=== PATIENT | male | born 1965 | race Caucasian/White ===

== ENCOUNTER 2016-02-18 09:34 | Day surgery (SDC) | payer MEDICAID ==
[2016-02-17 08:14] VITALS: BMI 27.8
[~2016-02-18 09:34] MED LIST: LACTATED RINGERS 1,000 ML IV SCH; LIDOCAINE 1% 20 ML VIAL (10MG/ML) FOR IV START INTRADERMA PRN
[2016-02-18 10:10] VITALS: RESP 16; TEMP 97
[2016-02-18] MEDS ORDERED: LIDOCAINE 1% INJ 10MG/ML (20 ML MDV) ONE (10:14)
[2016-02-18] MEDS ORDERED: PROPOFOL 10 MG/ML 20 ML VIAL IV ONE (10:14)
--- NOTE | 2016-02-18 10:32 | P.PCN ---
Date of Procedure: 02/18/16 Procedure(s) Performed: BRIEF HISTORY: Patient is a 51-year-old pleasant white male, scheduled for an elective colonoscopy as a part of screening for colon neoplasia. PROCEDURE PERFORMED: Colonoscopy with snare polypectomy. PREOPERATIVE DIAGNOSIS: Screening for colon cancer. IV sedation per Anesthesia. PROCEDURE: After informed consent was obtained, the patient, was brought into the endoscopy unit. IV conscious sedation was administered by Anesthesia under continuous monitoring. Digital rectal examination was normal. Initially the Olympus CF-160 flexible video colonoscope was then inserted in the rectum, gradually advanced into the cecum without any difficulty. Careful examination was performed as the scope was gradually being withdrawn. Ileocecal valve and the appendiceal orifice were visualized and appeared normal. Prep was excellent. Mucosa of the cecum, appeared normal. In the ascending colon there was a 7-8 mm polyp that was removed by snare polypectomy. The rest of the ascending colon, transverse colon, descending colon, sigmoid colon, and rectum appeared normal. Retroflexion was performed in the rectum and no lesions were seen. The patient tolerated the procedure well. IMPRESSION: 7-8 mm ascending colon polyp status post polypectomy. Rest of the colon appeared normal. RECOMMENDATIONS: Findings of this examination were discussed with the patient as well as his family. he was advised to follow with the biopsy results. If the biopsy shows a tubular adenoma, he can have a repeat colonoscopy in 5 years.
[2016-02-18 11:05] VITALS: BP 140/90; PULSE 76
== END 2016-02-18 11:26 | disposition home or self-care (01) ==
LOC: ORWHC2ENDO 09:34
PROVIDERS: ATTEND Internal Medicine Gastroenterology
DX: Z12.11 Encounter for screening for malignant neoplasm of colon (principal); K63.5 Polyp of colon; I10 Essential (primary) hypertension; F17.200 Nicotine dependence, unspecified, uncomplicated; K21.9 Gastro-esophageal reflux disease without esophagitis; Z79.899 Other long term (current) drug therapy; Z88.3 Allergy status to other anti-infective agents
CPT/HCPCS: 88305; 45385; J2001; J2704; 99153

== ENCOUNTER → 2016-12-06 | Outpatient (CLI) | payer MEDICAID ==
[2016-12-06 20:10] LABS: Clam IgE <0.10 kU/L; Egg White IgE <0.10 kU/L; Peanut IgE <0.10 kU/L; Scallop IgE <0.10 kU/L; Soybean IgE <0.10 kU/L
== END | disposition home or self-care (01) ==
LOC: LABWHC1 14:06
PROVIDERS: ATTEND Internal Medicine Critical Care Medicine
DX: L50.9 Urticaria, unspecified (principal)
CPT/HCPCS: 36415; 82785; 86003

== ENCOUNTER → 2017-03-02 | Outpatient (CLI) | payer MEDICAID ==
--- NOTE | 2017-03-04 13:21 | MR ---
EXAMINATION TYPE: MR lumbar spine wo con DATE OF EXAM: 03/03/2017 COMPARISON: NONE HISTORY: Low back pain CONTRAST: 0 mL intravenous Gadavist. TECHNIQUE: Multiplanar, multisequence images of the lumbar spine were acquired. FINDINGS: L5-S1: Broad-based disc bulge is present. Some left paracentral focal bulge may be present with mild anterior thecal sac compression. No stenosis is present. Moderate bilateral foraminal narrowing is pr esent from disc bulging extending into the inferior foramen. . L4-L5: There appears to be an annular tear present centrally. There is mild broad-based central disc bulge with anterior thecal sac compression. Diffuse disc bulge is present. No spinal canal stenosis i s present. Neural foramen are patent. L3-L4: Broad-based disc bulge has anterior thecal sac contact. Mild facet hypertrophy is present. No spinal canal stenosis or neural foraminal stenosis is present. L2-L3: No significant disc bulge or disc herniation. No spinal canal stenosis. No foraminal stenosi s. . L1-L2: No significant disc bulge or disc herniation. No spinal canal stenosis. No foraminal stenosi s. . T12-L1: No significant disc bulge or disc herniation. No spinal canal stenosis. No foraminal stenos is. . IMPRESSION: 1. Annular tear L4-5 with mild anterior thecal sac compression. 2. L5-S1 Disc bulge with mild anterior thecal sac compression. Some foraminal narrowing at L5-S1 due to inferior foraminal disc bulge is present.
== END | disposition home or self-care (01) ==
LOC: RADMRIMAIN 11:44
PROVIDERS: ATTEND Psychiatry & Neurology Neurology
DX: M99.73 Connective tissue and disc stenosis of intervertebral foramina of lumbar region (principal); M51.27 Other intervertebral disc displacement, lumbosacral region; M51.36 Other intervertebral disc degeneration, lumbar region; G95.29 Other cord compression
CPT/HCPCS: 72148

== ENCOUNTER 2017-08-01 09:27 | Observation (INO) | payer MEDICAID ==
[2017-08-01] MEDS ORDERED: SODIUM CHLORIDE 0.9% 1,000 ML IV STA ×2 (09:48)
[2017-08-01] MEDS ORDERED: ALBUTEROL NEBULIZED 2.5 MG/3 ML INHALATION STA (09:49)
[2017-08-01] MEDS ORDERED: methylPREDNISolone SOD SUCCI 125 MG/2 ML VIAL IV STA (09:50)
[2017-08-01] MEDS ORDERED: diphenhydrAMINE 50 MG/ML 1 ML VIAL IVP STA (09:50)
[2017-08-01] MEDS ORDERED: EPINEPHrine 1 MG/ML 1 ML AMP IM STA (09:50)
[2017-08-01] MEDS ORDERED: FAMOTIDINE 20 MG/2 ML VIAL IV STA (09:50)
[2017-08-01 10:17] LABS: Basophils # (A) 0.1 k/uL (0-0.2); Basophils % (A) 1 %; Eosinophils # (A) 0.5 k/uL (0-0.7); Eosinophils % (A) 5 %; HCT 44.9 % (39.0-53.0); HGB 15.2 gm/dL (13.0-17.5); Lymphocytes # (A) 2.5 k/uL (1.0-4.8); Lymphocytes % (A) 25 %; MCH 30.4 pg (25.0-35.0); MCHC 33.9 g/dL (31.0-37.0); MCV 89.9 fL (80.0-100.0); Mean Platelet Volume 6.4; Monocytes # (A) 0.8 k/uL (0-1.0); Monocytes % (A) 7 %; Neutrophils # (A) 6.3 k/uL (1.3-7.7); Neutrophils % (A) 61 %; Platelet Count 281 k/uL (150-450); WBC 10.3 k/uL (3.8-10.6)
[2017-08-01 10:26] LABS: ALT 26 U/L (21-72); AST 21 U/L (17-59); Albumin 4.2 g/dL (3.5-5.0); Alkaline Phosphatase 51 U/L (38-126); Anion Gap 12 mmol/L; Blood Urea Nitrogen 16 mg/dL (9-20); Calcium 9.2 mg/dL (8.4-10.2); Carbon Dioxide 26 mmol/L (22-30); Chloride 101 mmol/L (98-107); Glucose 115 mg/dL (74-99); Potassium 4.2 mmol/L (3.5-5.1); Sodium 139 mmol/L (137-145); Total Bilirubin 0.8 mg/dL (0.2-1.3); Total Protein 6.8 g/dL (6.3-8.2)
--- NOTE | 2017-08-01 10:54 | ED ---
Allergic Reaction HPI <Juanito Coats - Last Filed: 08/01/17 12:08> - General Source: patient, RN notes reviewed, old records reviewed Mode of arrival: ambulatory Limitations: no limitations <Kira Meyers - Last Filed: 08/01/17 12:19> - General Chief complaint: Allergic Reaction Stated complaint: allergic reaction Time Seen by Provider: 08/01/17 09:41 - History of Present Illness Initial Comments: This patient's a 52-year-old male presents emergency department today chief complaint of angioedema. He reports that he woke up this morning and started have some swelling over his lips and tongue. He states he's been having this intermittently for the past few years but family providers and testing cannot determine his exact ALLERGIES. He is not on any Doc or arm inhibitors for blood pressure. He's had no new foods or any exposures that he can think of that related to the onset of this angioedema. Patient states he does feel some closing of his throat. Denies any other symptoms. He did take a few Benadryl prior to arrival. (Kira Meyers) - Related Data Home Medications Medication Instructions Recorded Confirmed Hydrochlorothiazide 25 mg PO DAILY 11/12/14 08/01/17 [Hydrochlorothiazide] Omeprazole [Omeprazole] 20 mg PO DAILY 11/12/14 08/01/17 Famotidine [Pepcid] 20 mg PO DAILY 02/17/16 08/01/17 Previous Rx's Medication Instructions Recorded Cetirizine HCl [Zyrtec] 10 mg PO DAILY #60 tab 11/12/14 Allergies Allergy/AdvReac Type Severity Reaction Status Date / Time chlorhexidine gluconate Allergy Unknown Verified 08/01/17 10:06 [From Peridex] Review of Systems ROS Other: All systems not noted in ROS Statement are negative. <Juanito Coats - Last Filed: 08/01/17 12:08> ROS Other: All systems not noted in ROS Statement are negative. <Kira Meyers - Last Filed: 08/01/17 12:19> ROS Statement: Those systems with pertinent positive or pertinent negative responses have been documented in the HPI. Past Medical History Past Medical History: GERD/Reflux, Hypertension Additional Past Medical History / Comment(s): varicose veins, History of Any Multi-Drug Resistant Organisms: None Reported Past Surgical History: Orthopedic Surgery Additional Past Surgical History / Comment(s): abdifatah knee arthroscopy(rt x 2), rt knee replacement, Left shoulder Past Anesthesia/Blood Transfusion Reactions: No Reported Reaction Past Psychological History: No Psychological Hx Reported Smoking Status: Current every day smoker - Past Family History Mother Family Medical History: Cancer <Kira Meyers - Last Filed: 08/01/17 12:19> General Exam <Juanito Coats - Last Filed: 08/01/17 12:08> Limitations: no limitations <MiraKira - Last Filed: 08/01/17 12:19> - General Exam Comments Initial Comments: 52-year-old male. Alert and oriented. No acute distress. General: Well appearing, well nourished, in no distress. Oriented x 3, normal mood and affect . Ambulating without difficulty. Skin: Good turgor, no rash, unusual bruising or prominent lesions Hair: Normal texture and distribution. HEENT: Head: Normocephalic, atraumatic, no visible or palpable masses, depressions, or scaring. Eyes: Visual acuity intact, conjunctiva clear, sclera non-icteric, EOM intact, PERRL. Ears: EACs clear, TMs translucent & cone of light visualized. hearing intact. Nose: No external lesions, mucosa non-inflamed, septum and turbinates normal Mouth: It is of angioedema of the lips. Tongue is somewhat swollen. Teeth/Gums: No obvious caries or periodontal disease. No gingival inflammation or significant resorption. Pharynx: Mucosa non-inflamed, no tonsillar hypertrophy or exudate Neck: Supple, without lesions, bruits, or adenopathy, thyroid non-enlarged and non-tender Heart: No cardiomegaly or thrills; regular rate and rhythm, no murmur or gallop Lungs: Clear to auscultation and percussion Abdomen: Bowel sounds normal, no tenderness, organomegaly, masses, or hernia Back: Spine normal without deformity or tenderness, no CVA tenderness Extremities: No amputations or deformities, cyanosis, edema or varicosities, peripheral pulses intact Musculoskeletal: Normal gait and station. No misalignment, asymmetry, crepitation, defects, tenderness, masses, effusions, decreased range of motion, instability, atrophy or abnormal strength or tone in the head, neck, spine, ribs , pelvis or extremities. Neurologic: CN 2-12 normal. Sensation to pain, touch, and proprioception normal. DTRs normal in upper and lower extremities. No pathologic reflexes. (Kira Meyers) Vital Signs 08/01/17 08/01/17 08/01/17 09:33 09:50 10:33 Temperature 97.4 F L Pulse Rate 69 75 Respiratory 16 20 Rate Blood Pressure 142/83 O2 Sat by Pulse 98 Oximetry 08/01/17 08/01/17 10:43 11:24 Temperature Pulse Rate 60 72 Respiratory 18 Rate Blood Pressure 131/81 O2 Sat by Pulse 96 Oximetry Medical Decision Making - Lab Data Result diagrams: 08/01/17 09:47 08/01/17 09:47 <Juanito Coats - Last Filed: 08/01/17 12:08> - Lab Data Result diagrams: 08/01/17 09:47 08/01/17 09:47 <Kira Meyers - Last Filed: 08/01/17 12:19> - Medical Decision Making Patient reevaluated by myself, Dr. Coats. Patient is resting comfortably in bed. Patient does have moderate angioedema of the lips. Patient has mild angioedema of the uvula. No dyspnea. Patient is updated on plan and recommendation for admission and is agreeable for this. Case was discussed with Dr. Cage, who will admit for Dr. Jacobs. (Juanito Coats) 32-year-old male process present with angioedema. IV was established and Solu- Medrol Benadryl Pepcid and 0.3 mg of epinephrine was given. Patient is reevaluated does report some mild diminishing of the swelling of his lips. Given albuterol breathing treatment. Continues to have angioedema of the uvula. Does not complain of any major shortness of breath. Discussed case with Dr. Coats would like to keep the Patient for observation for repeat steroids, Pepcid and Benadryl. Patient agrees to the admission. (Kira Meyers) - Lab Data Lab Results 08/01/17 08/01/17 Range/Units 09:47 09:47 WBC 10.3 (3.8-10.6) k/uL RBC 5.00 (4.30-5.90) m/uL Hgb 15.2 (13.0-17.5) gm/dL Hct 44.9 (39.0-53.0) % MCV 89.9 (80.0-100.0) fL MCH 30.4 (25.0-35.0) pg MCHC 33.9 (31.0-37.0) g/dL RDW 13.0 (11.5-15.5) % Plt Count 281 (150-450) k/uL Neutrophils % 61 % Lymphocytes % 25 % Monocytes % 7 % Eosinophils % 5 % Basophils % 1 % Neutrophils # 6.3 (1.3-7.7) k/uL Lymphocytes # 2.5 (1.0-4.8) k/uL Monocytes # 0.8 (0-1.0) k/uL Eosinophils # 0.5 (0-0.7) k/uL Basophils # 0.1 (0-0.2) k/uL Sodium 139 (137-145) mmol/L Potassium 4.2 (3.5-5.1) mmol/L Chloride 101 (98-107) mmol/L Carbon Dioxide 26 (22-30) mmol/L Anion Gap 12 mmol/L BUN 16 (9-20) mg/dL Creatinine 0.74 (0.66-1.25) mg/dL Est GFR (CKD-EPI)AfAm >90 (>60 ml/min/1.73 sqM) Est GFR (CKD-EPI)NonAf >90 (>60 ml/min/1.73 sqM) Glucose 115 H (74-99) mg/dL Calcium 9.2 (8.4-10.2) mg/dL Total Bilirubin 0.8 (0.2-1.3) mg/dL AST 21 (17-59) U/L ALT 26 (21-72) U/L Alkaline Phosphatase 51 (38-126) U/L Total Protein 6.8 (6.3-8.2) g/dL Albumin 4.2 (3.5-5.0) g/dL Disposition <Juanito Coats - Last Filed: 08/01/17 12:08> Is patient prescribed a controlled substance at d/c from ED?: No When asked, does pt state using other controlled substances?: No If prescribed controlled substance>3 days was MAPS reviewed?: No If opioid is for acute pain is fill amount 7 days or less?: No If Rx opioid, was Start Talking consent form obtained?: No Time of Disposition: 12:19 <Kira Meyers - Last Filed: 08/01/17 12:19> Clinical Impression: Angioedema Disposition: ADMITTED IP TO THIS [facility] Condition: Stable Referrals: Jonnie Jacobs MD [Primary Care Provider] - 1-2 days
[2017-08-01] MEDS ORDERED: NALOXONE 0.4 MG/ML 1 ML VIAL IV PRN (12:19)
[2017-08-01] MEDS ORDERED: LORazepam 2 MG/ML INJ IV PRN (12:19)
[2017-08-01] MEDS ORDERED: ONDANSETRON 4 MG/2 ML VIAL IVP PRN (12:19)
[2017-08-01] MEDS: methylPREDNISolone SOD SUCCI 125 MG/2 ML VIAL IV SCH ×2 (12:49→18:12)
[2017-08-01] MEDS: diphenhydrAMINE 50 MG/ML 1 ML VIAL IVP SCH ×2 (12:49→18:12)
[2017-08-01] MEDS: ACETAMINOPHEN TAB 325 MG TAB PO PRN ×2 (13:28→20:50)
[2017-08-01] MEDS: SODIUM CHLORIDE 0.9% 1,000 ML IV SCH (13:58)
[2017-08-01] MEDS: FAMOTIDINE 20 MG/2 ML VIAL IV SCH (20:50)
[2017-08-02] MEDS: methylPREDNISolone SOD SUCCI 125 MG/2 ML VIAL IV SCH ×3 (00:11→11:26)
[2017-08-02] MEDS: diphenhydrAMINE 50 MG/ML 1 ML VIAL IVP SCH ×3 (00:11→11:26)
[2017-08-02] MEDS: SODIUM CHLORIDE 0.9% 1,000 ML IV SCH ×3 (00:12→11:26)
--- NOTE | 2017-08-02 01:02 | P.HPIM ---
History of Present Illness H&P Date: 08/01/17 Chief Complaint: Lip swelling Patient is a 52-year-old male with a known history of ALLERGIC reactions and was following with ALLERGY/vendor management specialist at [facility] and currently with Dr. Becker came to ER with complaints of swelling and angioedema. He reports that he woke up this morning and started have some swelling over his lips and tongue. He states he's been having this intermittently for the past few years but family providers and testing cannot determine his exact ALLERGIES. He is not on any Doc or arm inhibitors for blood pressure. He's had no new foods or any exposures that he can think of that related to the onset of this angioedema. Patient states he does feel some closing of his throat. Denies any other symptoms. He did take a Benadryl tablet prior to arrival. Denied any recent travel. Denied any specific food intake. Review of Systems Constitutional: Patient denies any fever or chills . No generalized weakness or weight loss. Abdomen: Patient denied nausea vomiting and diarrhea and abdominal pain. Cardiovascular: Patient denies any chest pain or short of breath no palpitations. Respiratory: patient denied any cough is from production. No shortness of breath Neurologic: Patient denied any numbness or tingling headache. Musculoskeletal: Patient denies any complaints of joint swelling or deformity. Skin: Negative. Lip swelling Psychiatric: Negative Endocrine: No heat or cold intolerance. No recent weight gain. Genitourinary: No dysuria or hematuria. All other 14 point ROS negative except the above Past Medical History Past Medical History: GERD/Reflux, Hypertension Additional Past Medical History / Comment(s): varicose veins, PT STATED FOR PAST 3 YEARS HAS HAD SEVERAL OCCURANCES OF AN ALLERGIC REACTION BUT NOT SURE WHAT IS CAUSING IT,STATED HE CARRIES AN EPI PEN. History of Any Multi-Drug Resistant Organisms: None Reported Past Surgical History: Orthopedic Surgery Additional Past Surgical History / Comment(s): abdifatah knee arthroscopy(rt x 2), rt knee replacement, Left shoulder, COLONOSCOPY, 2 LOWER DENTAL IMPLANTS Past Anesthesia/Blood Transfusion Reactions: No Reported Reaction Smoking Status: Former smoker - Past Family History Mother Family Medical History: Cancer Father Family Medical History: CVA/TIA Medications and Allergies Home Medications Medication Instructions Recorded Confirmed Type Cetirizine HCl [Zyrtec] 10 mg PO DAILY #60 tab 11/12/14 08/01/17 Rx Hydrochlorothiazide 25 mg PO DAILY 11/12/14 08/01/17 History [Hydrochlorothiazide] Omeprazole [Omeprazole] 20 mg PO DAILY 11/12/14 08/01/17 History Famotidine [Pepcid] 20 mg PO DAILY 02/17/16 08/01/17 History Allergies Allergy/AdvReac Type Severity Reaction Status Date / Time chlorhexidine gluconate Allergy Unknown Verified 08/01/17 10:06 [From Peridex] Physical Exam Vitals: Vital Signs Temp Pulse Resp BP Pulse Ox 08/01/17 13:30 98.6 F 73 18 140/87 98 08/01/17 11:24 72 18 131/81 96 08/01/17 10:43 60 08/01/17 10:33 75 08/01/17 09:50 20 08/01/17 09:33 97.4 F L 69 16 142/83 98 Intake and Output 08/01/17 08/01/17 08/01/17 06:59 14:59 22:59 Other: Weight 88.451 kg PHYSICAL EXAMINATION: Patient is lying in the bed comfortably, no acute distress, awake alert and oriented.. HEENT: Normocephalic. Lips are swollen. Neck is supple. Pupils reactive. Nostrils clear. Oral cavity is moist. Ears reveal no drainage. Neck reveals no JVD, carotid bruits, or thyromegaly. CHEST EXAMINATION: Trachea is central. Symmetrical expansion. Lung bernard clear to auscultation and percussion. CARDIAC: Normal S1, S2 with no gallops. No murmurs ABDOMEN: Soft. Bowel sounds normal. No organomegaly. No abdominal bruits. Extremities: reveal no edema. No clubbing or cyanosis Neurologically awake, alert, oriented x3 with well-coordinated movements. No focal deficits noted Skin: No rash or skin lesions. Psychiatric: Coperative. Nonsuicidal Musculoskeletal: No joint swelling or deformity. Normal range of motion. Results CBC & Chem 7: 08/01/17 09:47 08/01/17 09:47 Labs: Abnormal Lab Results - Last 24 Hours (Table) 08/01/17 Range/Units 09:47 Glucose 115 H (74-99) mg/dL Assessment and Plan Assessment: Acute Angioedema with lip swelling and shortness of breath on admission History of multiple ALLERGIES GERD Hypertension Osteoarthritis Previous history of smoking Plan: Patient was given IV steroids and Zantac in the ER. Continue the methylprednisolone 60 mg Q6 hourly and follow closely. Monitor for breathing status and further recommendations based on the clinical course. Time with Patient: Greater than 30
[2017-08-02] MEDS ORDERED: PANTOPRAZOLE 40 MG TABLET PO SCH (07:30)
[2017-08-02] MEDS: FAMOTIDINE 20 MG/2 ML VIAL IV SCH (08:03)
[2017-08-02] MEDS ORDERED: HYDROCHLOROTHIAZIDE 25 MG TAB PO SCH (09:00)
[2017-08-02] MEDS ORDERED: LORATADINE 10 MG TAB PO SCH (09:00)
[2017-08-02] MEDS ORDERED: PANTOPRAZOLE 40 MG/10 ML VIAL IV SCH (09:00)
--- NOTE | 2017-08-02 11:47 | P.DS ---
Providers Date of admission: 08/01/17 12:03 Expected date of discharge: 08/02/17 Attending physician: Jonnie Jacobs Primary care physician: Jonnie Jacobs [facility] Course: 52-year-old male is a chronic problems with severe ALLERGIC reactions. 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 This episode patient developed difficulty swallowing and angioedema with significant swelling to face. Patient was treated with steroids And observation overnight and stable for discharge this time Assessment Angioedema unknown source of allergen GERD Hypertension History of osteoarthritis Plan Follow-up with family physician All patient will consults on with tertiary center for ALLERGIES Patient Condition at Discharge: Stable Plan - Discharge Summary Discharge Rx Participant: Yes New Discharge Prescriptions: New Acetaminophen Tab [Tylenol] 650 mg PO Q6HR PRN tab PRN Reason: Mild Pain Or Fever > 100.5 predniSONE 10 mg PO DAILY #30 tab Continue Omeprazole 20 mg PO DAILY Hydrochlorothiazide 25 mg PO DAILY Cetirizine HCl [Zyrtec] 10 mg PO DAILY #60 tab Famotidine [Pepcid] 20 mg PO DAILY Discharge Medication List Cetirizine HCl [Zyrtec] 10 mg PO DAILY #60 tab 11/12/14 [Rx] Hydrochlorothiazide 25 mg PO DAILY 11/12/14 [History] Omeprazole 20 mg PO DAILY 11/12/14 [History] Famotidine [Pepcid] 20 mg PO DAILY 02/17/16 [History] Acetaminophen Tab [Tylenol] 650 mg PO Q6HR PRN tab 08/02/17 [Rx] predniSONE 10 mg PO DAILY #30 tab 08/02/17 [Rx] Follow up Appointment(s)/Referral(s): Jonnie Jacobs MD [Primary Care Provider] - 3 Days Patient Instructions/Handouts: Angioedema (GEN) Activity/Diet/Wound Care/Special Instructions: Cardiac diet. Activity as tolerated.
[2017-08-02 12:17] VITALS: BP 131/81; PULSE 73; RESP 20; TEMP 98.6
[2017-08-03 17:55] LABS: C1 Esterase Inhibitor, Protein 30 mg/dL (21-39)
[2017-08-05 17:15] LABS: C1 Esterase Inhibitor Fnc Assy > 100 % (> 67)
== END 2017-08-02 13:11 | disposition home or self-care (01) ==
LOC: EC 09:27 → 4MS4W 12:03
PROVIDERS: ADMIT Family Medicine; ATTEND Family Medicine
DX: T78.3XXA Angioneurotic edema, initial encounter (principal); R13.10 Dysphagia, unspecified; K21.9 Gastro-esophageal reflux disease without esophagitis; I10 Essential (primary) hypertension; M19.90 Unspecified osteoarthritis, unspecified site; I83.90 Asymptomatic varicose veins of unspecified lower extremity; Z87.891 Personal history of nicotine dependence; R06.02 Shortness of breath; Z79.899 Other long term (current) drug therapy; Z88.8 Allergy status to other drugs, medicaments and biological substances; Z80.9 Family history of malignant neoplasm, unspecified; Z82.3 Family history of stroke
CPT/HCPCS: 99285 ×2; 96374 ×2; 96372 ×2; 96375 ×3; 96361 ×11; 96376 ×2; 36415; 94640; 80053; 86160; 86161; 86332; 85025; G0378 ×2; J0171; J1200 ×2; J2930 ×2

== ENCOUNTER 2017-10-05 04:21 | Emergency (ER) | payer MEDICAID ==
[2017-10-05 04:28] VITALS: TEMP 97.6
--- NOTE | 2017-10-05 04:54 | ED ---
General Adult HPI - General Source: patient, RN notes reviewed, old records reviewed Mode of arrival: ambulatory Limitations: no limitations <Cam Wood - Last Filed: 10/05/17 04:52> <David Miller - Last Filed: 10/05/17 09:05> - General Chief complaint: Allergic Reaction Stated complaint: Allergic Reaction Time Seen by Provider: 10/05/17 04:32 - History of Present Illness Initial comments: 52-year-old male presents with lower lip swelling. Patient has history of angioedema. He has had approximately 10 episodes of lip and tongue swelling in the past 2 years. He is scheduled to follow up with an ALLERGIC specialist at the [facility] in 2 days. He has been off of his Zyrtec for the past week prior to this evaluation. He states that he woke at approximately 3:30 with tingling in his lip and noted some swelling. He states he has had this several times, he typically takes Benadryl and this resolves in several hours. When it is severe he presents to the emergency department and has been admitted on several occasions with angioedema and ALLERGIC reaction. He denies any tongue swelling. Denies difficulty breathing. Denies any other associated symptoms. He took 100 mg of Benadryl prior to arrival as well as 24 mg of methylprednisolone. (Cam Wood) - Related Data Home Medications Medication Instructions Recorded Confirmed Hydrochlorothiazide 25 mg PO DAILY 11/12/14 08/01/17 Omeprazole 20 mg PO DAILY 11/12/14 08/01/17 Famotidine [Pepcid] 20 mg PO DAILY 02/17/16 08/01/17 Previous Rx's Medication Instructions Recorded Cetirizine HCl [Zyrtec] 10 mg PO DAILY #60 tab 11/12/14 Acetaminophen Tab [Tylenol] 650 mg PO Q6HR PRN tab 08/02/17 predniSONE 10 mg PO DAILY #30 tab 08/02/17 Allergies Allergy/AdvReac Type Severity Reaction Status Date / Time chlorhexidine gluconate Allergy Unknown Verified 10/05/17 04:28 [From Peridex] Review of Systems ROS Other: All systems not noted in ROS Statement are negative. <Cam Wood - Last Filed: 10/05/17 04:52> ROS Other: All systems not noted in ROS Statement are negative. <David Miller - Last Filed: 10/05/17 09:05> ROS Statement: Those systems with pertinent positive or pertinent negative responses have been documented in the HPI. Past Medical History Past Medical History: GERD/Reflux, Hypertension Additional Past Medical History / Comment(s): varicose veins, PT STATED FOR PAST 3 YEARS HAS HAD SEVERAL OCCURANCES OF AN ALLERGIC REACTION BUT NOT SURE WHAT IS CAUSING IT,STATED HE CARRIES AN EPI PEN. History of Any Multi-Drug Resistant Organisms: None Reported Past Surgical History: Orthopedic Surgery Additional Past Surgical History / Comment(s): abdifatah knee arthroscopy(rt x 2), rt knee replacement, Left shoulder, COLONOSCOPY, 2 LOWER DENTAL IMPLANTS Past Anesthesia/Blood Transfusion Reactions: No Reported Reaction Past Psychological History: No Psychological Hx Reported Smoking Status: Former smoker Past Alcohol Use History: None Reported Past Drug Use History: None Reported - Past Family History Mother Family Medical History: Cancer Father Family Medical History: CVA/TIA <Cam Wood - Last Filed: 10/05/17 04:52> General Exam Limitations: no limitations General appearance: alert, in no apparent distress Head exam: Present: atraumatic, normocephalic Eye exam: Present: normal appearance ENT exam: Present: other (Lower lip angioedema, no tongue swelling, no swelling in the posterior oropharynx, no stridor) Neck exam: Present: normal inspection Respiratory exam: Present: normal lung sounds bilaterally. Absent: respiratory distress, wheezes Cardiovascular Exam: Present: regular rate, normal rhythm GI/Abdominal exam: Present: soft. Absent: distended, tenderness, guarding Extremities exam: Present: normal inspection, normal capillary refill. Absent: pedal edema Back exam: Present: normal inspection. Absent: full ROM, tenderness Neurological exam: Present: alert, oriented X3, CN II-XII intact. Absent: motor sensory deficit Skin exam: Present: warm, dry, intact. Absent: cyanosis, diaphoretic <Cam Wood - Last Filed: 10/05/17 04:52> Vital Signs 10/05/17 10/05/17 10/05/17 04:26 04:36 07:35 Temperature 97.6 F Pulse Rate 60 53 L Respiratory 18 17 16 Rate Blood Pressure 142/89 133/90 O2 Sat by Pulse 98 95 Oximetry 10/05/17 08:32 Temperature 97.6 F Pulse Rate 59 L Respiratory 18 Rate Blood Pressure 134/93 O2 Sat by Pulse 98 Oximetry Medical Decision Making <Cam Wood - Last Filed: 10/05/17 04:52> <David Miller - Last Filed: 10/05/17 09:05> - Medical Decision Making Patient's angioedema was improving anyone to go home to return if necessary. ( David Miller) Disposition <Cam Wood - Last Filed: 10/05/17 04:52> Is patient prescribed a controlled substance at d/c from ED?: No Time of Disposition: 08:43 <David Miller - Last Filed: 10/05/17 09:05> Clinical Impression: Angioedema Disposition: HOME SELF-CARE Condition: Good Instructions: Angioedema (ED) Referrals: Jonnie Jacobs MD [Primary Care Provider] - 1-2 days
[2017-10-05 08:33] VITALS: BP 134/93; PULSE 59; RESP 18
== END 2017-10-05 09:04 | disposition home or self-care (01) ==
LOC: EC 04:21
DX: T78.3XXA Angioneurotic edema, initial encounter (principal); K21.9 Gastro-esophageal reflux disease without esophagitis; I10 Essential (primary) hypertension; Z96.651 Presence of right artificial knee joint; Z87.891 Personal history of nicotine dependence; Z79.899 Other long term (current) drug therapy; Z88.8 Allergy status to other drugs, medicaments and biological substances
CPT/HCPCS: 99285

== ENCOUNTER → 2017-12-27 | Outpatient (CLI) | payer MEDICAID ==
--- NOTE | 2017-12-27 07:52 | XR ---
EXAMINATION TYPE: XR chest 2V DATE OF EXAM: 12/27/2017 COMPARISON: Chest x-ray December 10, 2016. HISTORY: COPD per order. Annual physical per patient. TECHNIQUE: Frontal and lateral views of the chest are obtained. FINDINGS: There is no focal air space opacity, pleural effusion, or pneumothorax seen. The cardiac silhouette size is within normal limits. Surgical change left shoulder level with 2 fixating screws i s redemonstrated.. IMPRESSION: No acute cardiopulmonary process. No significant change from prior.
[2017-12-27 09:32] LABS: Basophils % (A) 0 %; Eosinophils # (A) 0.2 k/uL (0-0.7); Eosinophils % (A) 3 %; HGB 14.3 gm/dL (13.0-17.5); Lymphocytes # (A) 2.4 k/uL (1.0-4.8); Lymphocytes % (A) 41 %; MCH 32.8 pg (25.0-35.0); MCHC 35.8 g/dL (31.0-37.0); MCV 91.8 fL (80.0-100.0); Mean Platelet Volume 6.7; Monocytes # (A) 0.4 k/uL (0-1.0); Monocytes % (A) 7 %; Neutrophils # (A) 2.7 k/uL (1.3-7.7); Neutrophils % (A) 47 %; Platelet Count 209 k/uL (150-450); RBC 4.36 m/uL (4.30-5.90); RDW 12.3 % (11.5-15.5); WBC 5.8 k/uL (3.8-10.6)
[2017-12-27 09:44] LABS: ALT 32 U/L (21-72); AST 25 U/L (17-59); Albumin 4.3 g/dL (3.5-5.0); Alkaline Phosphatase 46 U/L (38-126); Anion Gap 10 mmol/L; Blood Urea Nitrogen 17 mg/dL (9-20); Calcium 9.7 mg/dL (8.4-10.2); Carbon Dioxide 27 mmol/L (22-30); Chloride 104 mmol/L (98-107); Cholesterol 199 mg/dL (<200); Glucose 103 mg/dL (74-99); HDL Cholesterol 66 mg/dL (40-60); LDL Cholesterol,Calculated 110 mg/dL (0-99); Potassium 4.2 mmol/L (3.5-5.1); Sodium 141 mmol/L (137-145); Total Bilirubin 1.4 mg/dL (0.2-1.3); Total Protein 7.1 g/dL (6.3-8.2); Triglycerides 117 mg/dL (<150)
== END | disposition home or self-care (01) ==
LOC: RADXRMAIN 07:26
PROVIDERS: ATTEND Family Medicine
DX: J44.9 Chronic obstructive pulmonary disease, unspecified (principal); E78.5 Hyperlipidemia, unspecified; Z12.5 Encounter for screening for malignant neoplasm of prostate
CPT/HCPCS: 71046; 80053; 80061; 84153; 84443; 85025

== ENCOUNTER → 2017-12-27 | Outpatient (CLI) | payer MEDICAID | END | disposition home or self-care (01) | LOC: LABPAT 08:27 | PROVIDERS: ATTEND Orthopaedic Surgery | DX: Z01.812 Encounter for preprocedural laboratory examination (principal); M16.12 Unilateral primary osteoarthritis, left hip | CPT/HCPCS: 86850; 86900; 86901; 87070 ==

== ENCOUNTER → 2018-01-02 | Outpatient (CLI) | payer MEDICAID ==
[2018-01-02 14:08] LABS: Prothrombin Time 9.9 sec (9.0-12.0)
== END ==
LOC: LABPAT 13:26
PROVIDERS: ATTEND Orthopaedic Surgery
DX: Z01.812 Encounter for preprocedural laboratory examination (principal); M16.12 Unilateral primary osteoarthritis, left hip
CPT/HCPCS: 85610

== ENCOUNTER 2018-01-03 06:19 | Inpatient (IN) | payer MEDICAID ==
--- NOTE | 2018-01-02 09:07 | HP ---
HISTORY AND PHYSICAL CHIEF COMPLAINT: Left hip pain. 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 He notes he has significant pain with weightbearing activities. He intermittently limps. He has tried medications with only partial temporary relief. PAST MEDICAL HISTORY: Significant for reflux disease, arthritis, and depression. PAST SURGICAL HISTORY: Significant for previous right knee arthroscopy and subsequent right total knee arthroplasty. CURRENT MEDICATIONS: 1. Prilosec. 2. Ibuprofen. 3. [place]. ALLERGIES: He denies drug allergies. FAMILY HISTORY: Family history is noncontributory. SOCIAL HISTORY: Significant for social alcohol use. He also admits to tobacco use. REVIEW OF SYSTEMS: Sixteen point review of systems otherwise reviewed and is noncontributory. PHYSICAL EXAMINATION: On examination, the patient is approximately 6 feet tall, 195 pounds of mesomorphic habitus. HEENT exam is nonfocal. Neck is supple. Passive motion left hip flexion 75 degrees, external rotation with hip flex 45 degrees, internal rotation zero degrees with pain. Clinically, he has got 1 cm shortening left lower extremity compared to the right. His distal neurovascular exam otherwise appears intact in the left lower extremity. AP and lateral views of the left hip obtained in the office show severe osteoarthrosis with [id number] changes. IMPRESSION: Left hip severe osteoarthrosis-symptomatic. RECOMMENDATIONS: I talked to the patient at length regarding his condition and treatment options. At this point, he is quite limited because of pain related to his osteoarthrosis despite conservative measures. After thorough discussion, he opts to proceed with surgery. We will plan to proceed with direct anterior approach left total hip arthroplasty. Risks and benefits were discussed at length in layman's terms. We will institute DVT prophylaxis postoperatively. MMODL / IJN: [id number] /
[2018-01-02 09:59] VITALS: BMI 27.8
[~2018-01-03 06:19] MED LIST changes: +ACETAMINOPHEN TAB 500 MG TAB PO ONE; +HYDROmorphone 0.5 MG/0.5 ML SYRINGE IVP PRN; -LACTATED RINGERS 1,000 ML IV SCH; -LIDOCAINE 1% 20 ML VIAL (10MG/ML) FOR IV START INTRADERMA PRN; +MELOXICAM 7.5 MG TAB PO ONE; +MORPHINE SULFATE 2 MG/ML SYRINGE IV PRN; +TRANEXAMIC ACID 1,000 MG in SODIUM CHLORIDE 0.9% 50 ML IVPB ONE; +ceFAZolin IN SWFI 2 GM/20 ML SYRINGE IVP ONE
[2018-01-03] MEDS ORDERED: LACTATED RINGERS 1,000 ML IV ONE ×2 (06:48→09:56)
[2018-01-03] MEDS ORDERED: DEXAMETHASONE SOD PHOS (MDV) 100 MG/10 ML VIAL IVP ONE (07:03)
[2018-01-03] MEDS ORDERED: ONDANSETRON 4 MG/2 ML VIAL IVP ONE (07:03)
[2018-01-03] MEDS ORDERED: ceFAZolin 3,000 MG in SODIUM CHLORIDE 0.9% IRRIGATIO 3,000 ML IRRIGATION ONE (08:45)
[2018-01-03] MEDS ORDERED: MAGNESIUM HYDROXIDE 2,400 MG/10 ML CUP PO PRN (10:23)
[2018-01-03] MEDS ORDERED: HYDROmorphone 1 MG/ML 1 ML SYRINGE IVP PRN ×2 (10:23)
[2018-01-03] MEDS ORDERED: ACETAMINOPHEN TAB 325 MG TAB PO PRN (10:23)
[2018-01-03] MEDS ORDERED: NALOXONE 0.4 MG/ML 1 ML VIAL IV PRN (10:23)
--- NOTE | 2018-01-03 10:39 | FL ---
Fluoroscopy History: L HIP REPLACEMENT 46SEC FL TIME. L HIP REPLACEMENT ANTERIOR APPROACH
--- NOTE | 2018-01-03 10:49 | P.OP ---
Date of Procedure: 01/03/18 Preoperative Diagnosis: Severe left hip osteoarthrosis Postoperative Diagnosis: Same Procedure(s) Performed: Left total hip arthroplastyanterior approach Implants: Depuy Corail size 18 press-fit collared high offset femoral stem, 36 mm -2 cobalt chrome femoral head, 54 mm [place] acetabular shell with neutral polyethylene liner. Anesthesia: spinal Surgeon: Raghu Zimmerman Bone Char Puller #1: Puneet Johnson Estimated Blood Loss (ml): 200 Pathology: other (Femoral head) Condition: stable Disposition: PACU Indications for Procedure: The patient is a 52-year-old male presents with progressive left hip pain secondary to osteoarthrosis despite conservative measures. A discussion of the risks and benefits of operative intervention versus continued conservative measures was made with patient. He opted to proceed with surgery. Operative risks to include infection, neurovascular injury, development of blood clots, possible fracture, possible leg length discrepancy, possible hip instability and possible need for subsequent procedures was discussed. Informed consent was obtained. Operative Findings: And below Description of Procedure: The patient was brought to the operating room, and after induction of spinal anesthesia was placed supine on the Anastasia table. Positioning was checked with fluoroscopy. The left hip was then prepped and draped in a normal fashion. A 12 cm incision was then made starting 2 fingerbreadths distal and 3 finger breaths posterior to the ASIS in line with the proximal femur. The skin was incised sharply. Subcutaneous tissues were divided sharply. Electrocautery was used for hemostasis. The fascia was split in line with skin incision. The interval between the sartorius and tensor fascia johnathan was then bluntly developed. The posterior fascia was opened with electrocautery. The lateral circumflex vessels were identified and cauterized prior to sectioning. A retractor was placed along the superior femoral neck as well as the anterior acetabular rim. A wide capsulotomy was performed. The neck cut was then made at a 45 angle to the shaft approximately 1 1/2 cm above the level of the lesser trochanter. The head was extracted. Attention was then paid towards preparing the acetabulum. Anterior and posterior retractors were placed. The remaining capsular labral tissue sharply debrided clearly defining the acetabular margins. I began reaming with a 49 mm reamer taking care to initially medialize then reaming at 45 of abduction and 20 of anteversion. Sequential reaming is performed up to 53 mm. A trial 54 mm acetabular shell was inserted in the same orientation and was fully seated. There was good rim fit and stability. Positioning was checked with fluoroscopy. The final 54 mm acetabular shell was inserted again at 45 of abduction and 20 of anteversion. This was fully seated. There was good rim fit and stability. Again fluoroscopy was used to check the adequacy of placement. A neutral polyethylene liner was gently impacted. Care was taken to avoid any soft tissue interposition. Pulsatile lavage was utilized. Attention was then paid towards preparing the proximal femur. The central region was cleared of soft tissue. A canal finder was used to find the femoral canal. Sequential broaching was performed up to size 16 taking care to lateralize proximally. A calcar mill was used to fashion the medial calcar. There was good rotational stability. A high offset neck along with a 36+1 mm head was placed. The hip was gently reduced. Fluoroscopy was used to check the adequacy of positioning along with leg lengths. I felt both were good. The hip was gently dislocated. The trial components were removed. The final size 16collared standard press- fit femoral stem was inserted parallel to the posterior cortex. This was fully seated and there was inadequate rotational stability. I then exchanged this for a size 18 high offset press-fit femoral stem after broaching with a size 18 broach. This was fully seated. There was good rotational stability. A a 36mm -2 head was placed. This was gently impacted. The hip was then gently reduced. Final fluoroscopic view showed adequate placement implant along with zoroastrianism of leg length. Stability was checked with 80 of external rotation and 60 of extension of the right hip. The wound was irrigated with sterile lavage. The fascia was closed with running 0 Vicryl suture. There was minimal drainage therefore a deep drain was not placed. The second dose of IV TXA was given. The subcutaneous tissues were reapproximated interrupted 2-0 Vicryl sutures. The skin was reapproximated with 3-0 subcuticular strata fix suture. Skin tape and adhesive was applied. A sterile dressing was applied. The patient was then awoken from sedation and transferred to recovery room in good condition. Blood loss was estimated at 200 mL. No complications were incurred. Sponge and needle counts were correct at the end of the case. Pako LOVE assisted during the major components of this case to include exposure , head resection, implantation, and closure.
--- NOTE | 2018-01-03 11:27 | XR ---
EXAMINATION TYPE: XR Hip Limited LT DATE OF EXAM: 01/03/2018 CLINICAL HISTORY: Postoperative evaluation TECHNIQUE: Single portable view of the left hip was submitted. FINDINGS: Noted are changes of total hip arthroplasty with femoral and acetabular components appearin g well seated. Alignment is anatomic. Postsurgical soft tissue changes are evident. IMPRESSION: Satisfactory postoperative alignment
[2018-01-03] MEDS: LACTATED RINGERS 1,000 ML IV SCH ×2 (11:57→14:36)
[2018-01-03] MEDS: HYDROcodone/APAP 7.5-325MG 1 EACH TAB PO PRN ×3 (12:29→23:45)
--- NOTE | 2018-01-03 12:54 | P.CONS ---
History of Present Illness - History of Present Illness 52-year-old male is post total left hip arthroplasty anterior. Healthy with history of osteoarthritis reflux Review of Systems Musculoskeletal: left: hip pain Past Medical History Past Medical History: GERD/Reflux, Hypertension Additional Past Medical History / Comment(s): varicose veins rt leg , PT STATED FOR PAST 3 YEARS HAS HAD SEVERAL OCCURANCES OF AN ALLERGIC REACTION BUT NOT SURE WHAT IS CAUSING IT,STATED HE CARRIES AN EPI PEN. History of Any Multi-Drug Resistant Organisms: None Reported Past Surgical History: Joint Replacement, Orthopedic Surgery Additional Past Surgical History / Comment(s): abdifatah knee arthroscopy(rt x 2), rt knee replacement, Left shoulder, COLONOSCOPY, 2 LOWER DENTAL IMPLANTS. TLHA Past Anesthesia/Blood Transfusion Reactions: No Reported Reaction Past Psychological History: No Psychological Hx Reported Smoking Status: Former smoker Past Alcohol Use History: Occasional Additional Past Alcohol Use History / Comment(s): STARTED SMOKING AT AGE 18 AND QUIT AT AGE 52 1-2 PP WEEK. PT STATED DRINKS OCC-BUT AT TIME TAKES IN MORE THAN 14 DRINKS A WEEK Past Drug Use History: None Reported - Past Family History Mother Family Medical History: Cancer Father Family Medical History: CVA/TIA Medications and Allergies Home Medications Medication Instructions Recorded Confirmed Type Cetirizine HCl [Zyrtec] 10 mg PO DAILY #60 tab 11/12/14 01/03/18 Rx Hydrochlorothiazide 25 mg PO DAILY 11/12/14 01/03/18 History Omeprazole 20 mg PO DAILY 11/12/14 01/03/18 History Famotidine [Pepcid] 20 mg PO DAILY 02/17/16 01/03/18 History predniSONE 10 mg PO DAILY #30 tab 08/02/17 01/03/18 Rx EPINEPHrine (Auto Inject) [Epipen] 0.3 mg IM ONCE PRN 01/02/18 01/03/18 History Apixaban [Eliquis] 2.5 mg PO BID #56 tab 01/03/18 Rx Allergies Allergy/AdvReac Type Severity Reaction Status Date / Time No Known Allergies Allergy Verified 01/03/18 11:38 Physical Exam Vitals: Vital Signs Temp Pulse Resp BP Pulse Ox 01/03/18 11:00 49 L 18 106/75 99 01/03/18 10:45 62 18 111/69 99 01/03/18 10:34 98.3 F 57 L 16 105/60 99 11/27/18 06:38 97.7 F 65 18 131/81 96 Intake and Output 01/02/18 01/03/18 01/03/18 22:59 06:59 14:59 Intake Total 200 1101 Output Total 600 Balance 200 501 Intake: IV 200 1101 Output: Urine 400 Estimated Blood Loss 200 Other: Weight 92.986 kg - Constitutional General appearance: mild distress - EENT Eyes: PERRLA Ears: bilateral: normal - Neck Neck: normal ROM - Respiratory Respiratory: bilateral: CTA - Cardiovascular Rhythm: regular - Gastrointestinal General gastrointestinal: soft - Integumentary Integumentary: normal - Neurologic Neurologic: CNII-XII intact - Musculoskeletal States ambulated to bathroom - Psychiatric Psychiatric: A&O x's 3, appropriate affect, intact judgment & insight Assessment and Plan Plan: Assessment Severe left hip osteoarthritis post total left hip arthroplasty anterior approach History of hypertension reflux States occasional smoker Plan Patient stable we will monitor for changes in condition
[2018-01-03 13:59] LABS: ALT 36 U/L (21-72); AST 25 U/L (17-59); Albumin 4.2 g/dL (3.5-5.0); Alkaline Phosphatase 50 U/L (38-126); Anion Gap 8 mmol/L; Blood Urea Nitrogen 14 mg/dL (9-20); Calcium 9.6 mg/dL (8.4-10.2); Carbon Dioxide 29 mmol/L (22-30); Chloride 103 mmol/L (98-107); Glucose 120 mg/dL (74-99); Potassium 4.4 mmol/L (3.5-5.1); Sodium 140 mmol/L (137-145); Total Bilirubin 0.7 mg/dL (0.2-1.3); Total Protein 6.9 g/dL (6.3-8.2)
[2018-01-03] MEDS: traMADol 50 MG TAB PO SCH ×3 (14:30→21:00)
[2018-01-03] MEDS: ceFAZolin IN SWFI 2 GM/20 ML SYRINGE IVP SCH ×2 (15:44→23:46)
[2018-01-03] MEDS ORDERED: SENNOSIDES-DOCUSATE SODIUM 1 EACH TAB PO SCH (21:00)
[2018-01-04 01:49] VITALS: RESP 16
[2018-01-04] MEDS: HYDROcodone/APAP 7.5-325MG 1 EACH TAB PO PRN ×2 (05:06→12:07)
[2018-01-04] MEDS ORDERED: PANTOPRAZOLE 40 MG TABLET PO SCH (07:30)
[2018-01-04] MEDS: traMADol 50 MG TAB PO SCH ×2 (08:45→12:59)
[2018-01-04] MEDS ORDERED: LORATADINE 10 MG TAB PO SCH (09:00)
[2018-01-04] MEDS ORDERED: HYDROCHLOROTHIAZIDE 25 MG TAB PO SCH (09:00)
[2018-01-04] MEDS ORDERED: RIVAROXABAN 10 MG TAB PO SCH (09:00)
[2018-01-04] MEDS ORDERED: ONDANSETRON 4 MG/2 ML VIAL IVP PRN (09:15)
[2018-01-04 09:25] VITALS: BP 125/78; PULSE 70; TEMP 97.2
[2018-01-04 09:45] LABS: Basophils % (A) 0 %; Eosinophils # (A) 0.1 k/uL (0-0.7); Eosinophils % (A) 1 %; HCT 37.8 % (39.0-53.0); HGB 12.2 gm/dL (13.0-17.5); Lymphocytes % (A) 25 %; MCH 30.2 pg (25.0-35.0); MCHC 32.3 g/dL (31.0-37.0); MCV 93.7 fL (80.0-100.0); Mean Platelet Volume 6.7; Monocytes # (A) 0.9 k/uL (0-1.0); Monocytes % (A) 8 %; Neutrophils # (A) 7.9 k/uL (1.3-7.7); Neutrophils % (A) 66 %; Platelet Count 243 k/uL (150-450); RBC 4.04 m/uL (4.30-5.90); RDW 12.4 % (11.5-15.5)
--- NOTE | 2018-01-04 11:26 | P.PN ---
Progress Note - Text Patient stable medically for discharge
--- NOTE | 2018-01-04 11:35 | P.PN ---
Subjective Progress Note Date: 01/04/18 Principal diagnosis: Status post left total hip arthroplasty Patient evaluated today at bedside, he is resting in his hospital chair. His pain is controlled. He is ambulating with therapy. His urinated on his own. Denies any fevers or chills, chest pain or shortness of breath. Objective - Vital Signs Vital signs: Vital Signs Temp 97.2 F L 01/04/18 08:45 Pulse 70 01/04/18 08:45 Resp 16 01/04/18 08:45 BP 125/78 01/04/18 08:45 Pulse Ox 99 01/04/18 08:45 Intake & Output 01/03/18 01/04/18 01/04/18 18:59 06:59 18:59 Intake Total 1101 1920 Output Total 600 Balance 501 1920 Weight 92.986 kg Intake: IV 1101 Intake, IV Titration 1120 Amount Lactated Ringers 1,000 ml 1120 @ 70 mls/hr IV .[id number] MARSHA Rx#:[id number] Oral 800 Output: Urine 400 Estimated Blood Loss 200 Other: # Voids 3 - Exam Left lower extremity: Incision is clean, dry, and intact. The exofin fusion tape is in good condition. There is minimal soft tissue swelling and ecchymosis surrounding the medial and lateral aspects of the incision. Calf is soft, no tenderness with palpation. Plantar flexion, dorsiflexion, EHL, FHL are intact. Sensory exam to light touch throughout the extremity is intact, dorsal pedis pulses 2+. - Labs CBC & Chem 7: 01/04/18 08:00 01/03/18 13:07 Labs: Abnormal Lab Results - Last 24 Hours (Table) 01/03/18 01/04/18 Range/Units 13:07 08:00 WBC 12.0 H (3.8-10.6) k/uL RBC 4.04 L (4.30-5.90) m/uL Hgb 12.2 L (13.0-17.5) gm/dL Hct 37.8 L (39.0-53.0) % Neutrophils # 7.9 H (1.3-7.7) k/uL Glucose 120 H (74-99) mg/dL Assessment and Plan Plan: Assessment: Postoperative day #1 status post left total hip arthroplasty Plan: Pain control, we'll discharge home on oral medication GI and DVT prophylaxis, Eliquis 2.5mg bid for 1 month Home physical therapy and nursing Wound care was discussed the patient at bedside Medical recommendations Discharge planning: Plan for discharge home today, [facility] 2 [facility] Time with Patient: Less than 30
--- NOTE | 2018-01-04 11:39 | P.DS ---
Providers Date of admission: 01/03/18 06:19 Expected date of discharge: 01/04/18 Attending physician: Raghu Zimmerman Consults: 01/03/18 10:26 Consult Physician Routine Consulting Provider: Jonnie Jacobs Consult Reason/Comments: Medical Management Do you want consulting provider notified?: Yes Primary care physician: Jonnie Jacobs Hospital Course: Date of admission: 01/03/2018 Date of discharge: 01/04/2018 Admission diagnosis: Status post left total hip arthroplasty Discharge diagnosis: Same Attending physician: Dr. Zimmerman Surgical procedures: Left total hip arthroplasty Brief history: Patient is a 52-year-old male with a history of progressive primary left hip osteoarthritis. At this point patient has failed conservative treatment measures and has opted to proceed with a elective left total hip arthroplasty. Hospital course: Details of patient's surgery can be found in operative report. Patient tolerated the procedure well and was subsequently transported to orthopedic floor. Patient's orthopeidc and medical care was provided daily. Patient had daily laboratory tests performed for evaluation of overall blood counts. Patient had daily physical therapy to include strengthening range of motion as well as education with walker ambulation. Patient was treated with Xarelto for their postoperative DVT prophylaxis during their inpatient stay. Patient was noted to have a relatively uneventful postoperative course. Patient reported satisfactory pain control with oral pain medications by postoperative day 0. Patient showed satisfactory progress with physical therapy. Patient moved steadily through the program and had no difficulty meeting the goals by postoperative day 1. Given patient's otherwise satisfactory course and having met physical therapy goals, plan is to discharge patient home on postoperative day 1. Discharge condition/disposition: Patient will be discharged home in stable condition. Discharge medications: Instructions are given on resumption of patient's normal daily medications per primary care recommendation, in addition patient will be prescribed [place] 7.5 mg 325 mg, tramadol 50 mg, Colace 100 mg, Eliquis 2.5mg. Discharge instructions: 1. Wound care and infection precautions, keep incision dry and covered while showering, no lotions, creams, moisturizers. No soaking, tubs, pools, hottubs. Do not scrub over the incision. 2. Weight-bear as tolerated] with walker / cane until follow-up. 3. Ice and elevate when necessary. Do not exceed 20 minutes per hour with ice pack. 4. Utilize compression sleeve until seen at first follow up appointment. 5. Visiting nursing care. 6. Home physical therapy 7. Pain meds and anticoagulants per prescription. 8. Pain medication has potential to cause constipation. Increase oral fluid and fiber intake. Contact primary care provider if you have not had a bowel movement within 48 hours after discharge 9. No anti-inflammatory medication until discussed at first post operative visit, this including Motrin, Aleve, Mobic, Diclofenac 10. Follow up in office at 2 weeks postop with Pako Johnson PA-C 11. Follow up with your primary care doctor 7-10 days after discharge. 12. Contact [facility] with any questions, . Procedures: Left total hip arthroplasty Patient Condition at Discharge: Good Plan - Discharge Summary Discharge Rx Participant: Yes New Discharge Prescriptions: New Apixaban [Eliquis] 2.5 mg PO BID #56 tab Apixaban [Eliquis] 2.5 mg PO BID #56 tab Docusate [Colace] 100 mg PO DAILY #30 capsule HYDROcodone/APAP 7.5-325MG [[place] 7.5] 1 - 2 each PO Q6HR PRN #40 tab PRN Reason: Pain traMADol HCl [Ultram] 50 mg PO Q6H PRN #28 tab PRN Reason: Pain Continue Omeprazole 20 mg PO DAILY Hydrochlorothiazide 25 mg PO DAILY Cetirizine HCl [Zyrtec] 10 mg PO DAILY #60 tab Famotidine [Pepcid] 20 mg PO DAILY predniSONE 10 mg PO DAILY #30 tab EPINEPHrine (Auto Inject) [Epipen] 0.3 mg IM ONCE PRN PRN Reason: Anaphylaxis Discharge Medication List Cetirizine HCl [Zyrtec] 10 mg PO DAILY #60 tab 11/12/14 [Rx] Hydrochlorothiazide 25 mg PO DAILY 11/12/14 [History] Omeprazole 20 mg PO DAILY 11/12/14 [History] Famotidine [Pepcid] 20 mg PO DAILY 02/17/16 [History] predniSONE 10 mg PO DAILY #30 tab 08/02/17 [Rx] EPINEPHrine (Auto Inject) [Epipen] 0.3 mg IM ONCE PRN 01/02/18 [History] Apixaban [Eliquis] 2.5 mg PO BID #56 tab 01/03/18 [Rx] Apixaban [Eliquis] 2.5 mg PO BID #56 tab 01/04/18 [Rx] Docusate [Colace] 100 mg PO DAILY #30 capsule 01/04/18 [Rx] HYDROcodone/APAP 7.5-325MG [[place] 7.5] 1 - 2 each PO Q6HR PRN #40 tab 01/04/18 [ Rx] traMADol HCl [Ultram] 50 mg PO Q6H PRN #28 tab 01/04/18 [Rx] Follow up Appointment(s)/Referral(s): Jonnie Jacobs MD [Primary Care Provider] - 01/12/18 9:20 am [facility], [NON-STAFF] - As Needed Puneet Johnson PAC [PHYSICIAN PHYSICIAN PEDIATRICIAN] - 2 Weeks Patient Instructions/Handouts: Anterior Hip Replacement (DC) Activity/Diet/Wound Care/Special Instructions: Orthopedic Discharge Instructions: 1. Wound care and infection precautions, keep incision dry and covered while showering, no lotions, creams, moisturizers. No soaking, pools, hot tubs. Do not scrub over incision. 2. Weight-bear as tolerated with walker / cane until follow-up. 3. Ice and elevate when necessary. Do not exceed 20 minutes per hour with ice pack. 4. Utilize compression sleeve until seen at first follow up appointment. 5. Pain meds and anticoagulants per prescription. 6. Pain medication has potential to cause constipation. Increase oral fluid and fiber intake. Contact primary care provider if you have not had a bowel movement within 48 hours after discharge. 7. No anti-inflammatory medication until discussed at first post operative visit, this including Motrin, Aleve, Mobic, Diclofenac. 8. Follow up in office at 2 weeks postop with Pako Johnson PA-C 9. Follow up with your primary care doctor 7-10 days after discharge. 10. Contact [facility] with any questions, . Discharge Disposition: HOME WITH HOME HEALTH SERVICES
== END 2018-01-04 13:35 | disposition home health service (06) | DRG 470 ==
LOC: 2ORMAIN 06:19 → 4SSUR 10:52
PROVIDERS: ADMIT Orthopaedic Surgery; ATTEND Orthopaedic Surgery
PROC: 0SRB02A Replacement of Left Hip Joint with Metal on Polyethylene Synthetic Substitute, Uncemented, Open Approach (ICD-10-PCS; principal; 2018-01-03 08:00)
DX: M16.12 Unilateral primary osteoarthritis, left hip (principal); I10 Essential (primary) hypertension; K21.9 Gastro-esophageal reflux disease without esophagitis; F32.9 Major depressive disorder, single episode, unspecified; I83.91 Asymptomatic varicose veins of right lower extremity; J44.9 Chronic obstructive pulmonary disease, unspecified; E78.5 Hyperlipidemia, unspecified; F17.210 Nicotine dependence, cigarettes, uncomplicated; E66.3 Overweight; Z68.27 Body mass index [BMI] 27.0-27.9, adult; Z79.01 Long term (current) use of anticoagulants; Z79.52 Long term (current) use of systemic steroids; Z79.899 Other long term (current) drug therapy; Z96.651 Presence of right artificial knee joint; Z82.49 Family history of ischemic heart disease and other diseases of the circulatory system; Z82.3 Family history of stroke; Z80.6 Family history of leukemia; Z80.9 Family history of malignant neoplasm, unspecified; Z82.5 Family history of asthma and other chronic lower respiratory diseases
CPT/HCPCS: 73501; 80053; 85025; 88305; 88311

== ENCOUNTER → 2018-05-04 | Outpatient (CLI) | payer MEDICAID ==
[2018-05-04 09:25] LABS: Basophils # (A) 0.1 k/uL (0-0.2); Basophils % (A) 1 %; Eosinophils # (A) 0.3 k/uL (0-0.7); Eosinophils % (A) 4 %; HCT 46.8 % (39.0-53.0); Lymphocytes # (A) 2.7 k/uL (1.0-4.8); Lymphocytes % (A) 40 %; MCH 29.1 pg (25.0-35.0); MCHC 32.1 g/dL (31.0-37.0); MCV 90.5 fL (80.0-100.0); Mean Platelet Volume 6.8; Monocytes # (A) 0.6 k/uL (0-1.0); Monocytes % (A) 9 %; Neutrophils # (A) 3.1 k/uL (1.3-7.7); Neutrophils % (A) 45 %; Platelet Count 289 k/uL (150-450); RBC 5.16 m/uL (4.30-5.90); RDW 14.2 % (11.5-15.5); WBC 6.8 k/uL (3.8-10.6)
--- NOTE | 2018-05-04 09:39 | US ---
EXAMINATION TYPE: US abdomen complete DATE OF EXAM: 05/04/2018 COMPARISON: NONE CLINICAL HISTORY: R10.9 abdominal pain. NPO, no previous surgeries. Patient states bloating and gene ral abdomen pain after eating. EXAM MEASUREMENTS: Liver Length: 15.7 cm Gallbladder Wall: 0.1 cm CHD: 0.4 cm Spleen: 9.4 cm Right Kidney: 10.5 x 6.1 x 5.2 cm Left Kidney: 10.6 x 6.0 x 5.9 cm Pancreas: Tail not well visualized due to overlying bowel gas. Appears echogenic in appearance. Liver: wnl Gallbladder: wnl, fold seen Evidence for sonographic Trimble's sign: neg CBD: Obscured by overlying bowel gas CHD: wnl Spleen: wnl Right Kidney: wnl Left Kidney: wnl Upper IVC: wnl Abd Aorta: Proximal obscured by overlying bowel gas. No AAA visualized in portions seen. The liver is homogenous. The intrahepatic portion of the IVC and proximal abdominal aorta are within normal limits. There is no evidence of cholelithiasis. Common bile duct is unremarkable. The visu alized portions of the pancreas are homogenous. The spleen is unremarkable. Kidneys are symmetric a nd free of hydronephrosis. No renal lesions are seen. IMPRESSION: No distinct abnormality appreciated.
[2018-05-04 09:44] LABS: ALT 31 U/L (21-72); AST 30 U/L (17-59); Albumin 4.4 g/dL (3.5-5.0); Alkaline Phosphatase 71 U/L (38-126); Amylase 41 U/L (30-110); Anion Gap 7 mmol/L; Blood Urea Nitrogen 15 mg/dL (9-20); Calcium 9.8 mg/dL (8.4-10.2); Carbon Dioxide 30 mmol/L (22-30); Chloride 103 mmol/L (98-107); Glucose 97 mg/dL (74-99); Lipase 75 U/L (23-300); Potassium 4.3 mmol/L (3.5-5.1); Sodium 140 mmol/L (137-145); Total Bilirubin 1.7 mg/dL (0.2-1.3); Total Protein 7.3 g/dL (6.3-8.2)
== END | disposition home or self-care (01) ==
LOC: RADUSWWP 08:47
PROVIDERS: ATTEND Family Medicine
DX: R10.9 Unspecified abdominal pain (principal)
CPT/HCPCS: 76700; 80053; 82150; 83690; 85025

== ENCOUNTER → 2018-12-21 | Outpatient (CLI) | payer MEDICAID ==
--- NOTE | 2018-12-21 08:13 | XR ---
EXAMINATION TYPE: XR chest 2V DATE OF EXAM: 12/21/2018 COMPARISON: 12/27/2017 HISTORY: 53-year-old male COPD TECHNIQUE: Frontal and lateral views FINDINGS: The cardiomediastinal silhouette, aorta, and pulmonary vasculature are within normal limits. Hyperinf lation. No consolidation or pleural effusion. Fixation screws along the anterior left glenoid rim. IMPRESSION: COPD. No acute process seen.
== END | disposition home or self-care (01) ==
LOC: RADXRMAIN 07:29
PROVIDERS: ATTEND Family Medicine
DX: J44.9 Chronic obstructive pulmonary disease, unspecified (principal)
CPT/HCPCS: 71046

== ENCOUNTER → 2018-12-28 | Outpatient (CLI) | payer MEDICAID ==
[2018-12-28 08:10] LABS: Basophils # (A) 0.1 k/uL (0-0.2); Basophils % (A) 2 %; Eosinophils # (A) 0.3 k/uL (0-0.7); Eosinophils % (A) 5 %; HCT 43.7 % (39.0-53.0); Lymphocytes # (A) 2.3 k/uL (1.0-4.8); Lymphocytes % (A) 37 %; MCH 32.1 pg (25.0-35.0); MCHC 34.4 g/dL (31.0-37.0); MCV 93.4 fL (80.0-100.0); Mean Platelet Volume 6.4; Monocytes # (A) 0.4 k/uL (0-1.0); Monocytes % (A) 7 %; Neutrophils # (A) 2.9 k/uL (1.3-7.7); Neutrophils % (A) 47 %; Platelet Count 270 k/uL (150-450); RBC 4.68 m/uL (4.30-5.90); RDW 12.1 % (11.5-15.5); WBC 6.1 k/uL (3.8-10.6)
[2018-12-28 10:50] LABS: African American GFR (CKD) 112.6 (60.0-200.0); Albumin 4.5 g/dL (3.80-4.90); Albumin/Globulin Ratio 2.25 (1.60-3.17); Anion Gap 6.9 mmol/L (4.00-12.00); BUN/Creat Ratio 15.56 Ratio (12.00-20.00); Calcium 9.5 mg/dL (8.7-10.3); Carbon Dioxide 28.1 mmol/L (21.6-31.8); Chol/HDL Ratio 3.2; Non-African American GFR(CKD) 97.2 (60.0-200.0); Potassium 4.4 mmol/L (3.5-5.5); Total Bilirubin 0.9 mg/dL (0.3-1.2); Total Protein 6.5 g/dL (6.2-8.2)
[2018-12-28 10:58] LABS: T4, Free (Free Thyroxine) 1.3 ng/dL (0.80-1.80)
== END | disposition home or self-care (01) ==
LOC: LABWHC1 07:00
PROVIDERS: ATTEND Family Medicine
DX: I10 Essential (primary) hypertension (principal)
CPT/HCPCS: 36415; 80053; 80061; 84153; 84439; 84443; 85025

== ENCOUNTER → 2018-12-29 | Outpatient (CLI) | payer MEDICAID ==
--- NOTE | 2018-12-29 10:12 | NM ---
EXAMINATION TYPE: NM hepatobiliary w EF DATE OF EXAM: 12/29/2018 COMPARISON: NONE HISTORY: Abdominal pain. Biliary dyskinesia. TECHNIQUE: After the intravenous administration of 4.77 mCi Tc 99m Mebrofenin hepatobiliary scintigra phy is performed. Immediate images post injection. FINDINGS: There is satisfactory initial accumulation of tracer by the liver. The gallbladder is visualized wit hin 12 minutes. The small bowel activity is noted within 20 minutes. At one hour 8 ounces of oral e nsure plus is given to mimic CCK and gallbladder ejection fraction is calculated at 5 %, abnormal. T herefore there is no scintigraphic evidence of cystic or common bile duct obstruction to suggest acut e cholecystitis or gallbladder dyskinesia. IMPRESSION: Biliary dyskinesia with markedly abnormal gallbladder ejection fraction of only 5%.
== END | disposition home or self-care (01) ==
LOC: RADNMMAIN 07:01
PROVIDERS: ATTEND Family Medicine
DX: K82.8 Other specified diseases of gallbladder (principal); R93.3 Abnormal findings on diagnostic imaging of other parts of digestive tract
CPT/HCPCS: 78226; A9537

== ENCOUNTER → 2019-01-24 | Outpatient (CLI) | payer OTHER ==
--- NOTE | 2019-01-24 15:40 | XR ---
EXAMINATION TYPE: XR chest 2V DATE OF EXAM: 01/24/2019 COMPARISON: 12/27/2017 INDICATION: Mid left rib pain following lifting TECHNIQUE: Frontal and lateral views of the chest are obtained. FINDINGS: The heart size is normal. The pulmonary vasculature is normal. The lungs are clear. IMPRESSION: 1. No acute pulmonary process.
--- NOTE | 2019-01-24 15:42 | XR ---
EXAMINATION TYPE: XR ribs LT DATE OF EXAM: 01/24/2019 COMPARISON: Chest x-ray 01/24/2019, chest x-ray 12/21/2018 HISTORY: Mid left rib pain TECHNIQUE: Two-view left RIBS FINDINGS: No acute displaced rib fractures are evident. No pneumothorax is evident. There are 2 screw s within the scapula. IMPRESSION: 1. Normal left ribs
== END | disposition home or self-care (01) ==
LOC: RADXRMAIN 15:14
PROVIDERS: ATTEND Emergency Medicine
DX: S29.011S Strain of muscle and tendon of front wall of thorax, sequela (principal)
CPT/HCPCS: 71046

== ENCOUNTER 2019-07-30 08:16 | Day surgery (SDC) | payer MEDICAID ==
[2019-07-26 15:22] VITALS: BMI 27.1
[~2019-07-30 08:16] MED LIST changes: -ACETAMINOPHEN TAB 500 MG TAB PO ONE; +DEXAMETHASONE SOD PHOSPHATE 10 MG/ML 1 ML VIAL IV ONE; +HEPARIN SODIUM,PORCINE 5,000 UNIT/ML 1 ML VIAL SQ ONE; -HYDROmorphone 0.5 MG/0.5 ML SYRINGE IVP PRN; +LACTATED RINGERS 1,000 ML IV SCH; -MELOXICAM 7.5 MG TAB PO ONE; -MORPHINE SULFATE 2 MG/ML SYRINGE IV PRN; +ONDANSETRON 4 MG/2 ML VIAL IVP ONE; -TRANEXAMIC ACID 1,000 MG in SODIUM CHLORIDE 0.9% 50 ML IVPB ONE; -ceFAZolin IN SWFI 2 GM/20 ML SYRINGE IVP ONE
[2019-07-30 08:53] VITALS: TEMP 97.3
--- NOTE | 2019-07-30 09:07 | P.GSHP ---
History of Present Illness H&P Date: 07/30/19 Chief Complaint: Biliary dyskinesia Patient here today for elective cholecystectomy. Complaining of right upper quadrant pain nonradiating. Feels cramps and bloating at times. Worse with certain foods. Ultrasound was negative. HIDA scan showed a 5% ejection fraction. Past Medical History Past Medical History: COPD, GERD/Reflux, Hypertension, Osteoarthritis (OA) Additional Past Medical History / Comment(s): No Rx for HTN any longer. "Early COPD," per Varicose veins rt leg. Hx allergic reaction, unknown cause, carries Epi pen. Hx gallbladder prob History of Any Multi-Drug Resistant Organisms: None Reported Past Surgical History: Joint Replacement, Orthopedic Surgery Additional Past Surgical History / Comment(s): abdifatah knee arthroscopy(rt x 2), rt knee replacement, Left shoulder, COLONOSCOPY, 2 LOWER DENTAL IMPLANTS. TLHA Past Anesthesia/Blood Transfusion Reactions: No Reported Reaction Smoking Status: Former smoker - Past Family History Mother Family Medical History: Cancer Additional Family Medical History / Comment(s): breast cancer Father Family Medical History: CVA/TIA Medications and Allergies Home Medications Medication Instructions Recorded Confirmed Type Cetirizine HCl [Zyrtec] 10 mg PO DAILY #60 tab 11/12/14 07/30/19 Rx EPINEPHrine (Auto Inject) [Epipen] 0.3 mg IM ONCE PRN 01/02/18 07/30/19 History Cholecalciferol [Vitamin D3 (25 1,000 unit PO DAILY 07/26/19 07/30/19 History Mcg = 1000 Iu)] Montelukast [Singulair] 10 mg PO DAILY 07/26/19 07/30/19 History Pantoprazole [Protonix] 40 mg PO DAILY 07/26/19 07/30/19 History Allergies Allergy/AdvReac Type Severity Reaction Status Date / Time No Known Allergies Allergy Verified 07/30/19 08:57 Surgical - Exam Vital Signs Temp Pulse Resp BP Pulse Ox 97.3 F L 66 16 153/87 97 07/30/19 08:52 07/30/19 08:52 07/30/19 08:52 07/30/19 08:52 07/30/19 08:52 Physical exam: General: Well-developed, well-nourished HEENT: Normocephalic, sclerae nonicteric Abdomen: Nontender, nondistended Extremities: No edema Neuro: Alert and oriented Assessment and Plan (1) Biliary dyskinesia Narrative/Plan: Will proceed with laparoscopic cholecystectomy, possible open cholecystectomy at this time. Risks of bleeding, infection, bile leak, bile duct injury, retained common bile duct stone, trocar injury, conversion to an open procedure, hernia, anesthesia related complications were reviewed. The patient understands and wishes to proceed. Current Visit: Yes Status: Acute Code(s): K82.8 - OTHER SPECIFIED DISEASES OF GALLBLADDER SNOMED Code(s): 625333562
[2019-07-30] MEDS ORDERED: fentaNYL (PF) 50 MCG/ML 2 ML AMP ONE (10:04)
[2019-07-30] MEDS ORDERED: MIDAZOLAM 2 MG/2 ML VIAL ONE (10:04)
[2019-07-30] MEDS ORDERED: ROCURONIUM BROMIDE 10 MG/ML 5 ML VIAL IV ONE (10:04)
[2019-07-30] MEDS ORDERED: GLYCOPYRROLATE 0.2 MG/ML 2 ML VIAL ONE (10:04)
[2019-07-30] MEDS ORDERED: NEOSTIGMINE 1 MG/ML 10 ML VIAL ONE (10:04)
[2019-07-30] MEDS ORDERED: LIDOCAINE 1% INJ 10MG/ML (20 ML MDV) ONE (10:04)
[2019-07-30] MEDS ORDERED: SUCCINYLCHOLINE CHLORIDE 100 MG/5 ML SYR IV ONE (10:04)
[2019-07-30] MEDS ORDERED: PROPOFOL 10 MG/ML 20 ML VIAL IV ONE (10:04)
[2019-07-30] MEDS ORDERED: KETOROLAC 30 MG/ML 1 ML VIAL ONE (10:04)
[2019-07-30] MEDS ORDERED: PHENYLEPHRINE-0.9% NACL SYG 1 MG/10 ML SYRINGE ONE (10:04)
[2019-07-30] MEDS ORDERED: BUPIVACAINE (PF) 0.5% 30 ML VIAL SQ ONE ×2 (10:40)
[2019-07-30] MEDS ORDERED: LACTATED RINGERS 1,000 ML IV ONE (10:53)
[2019-07-30] MEDS ORDERED: NALOXONE 0.4 MG/ML 1 ML VIAL IV PRN (11:09)
[2019-07-30] MEDS ORDERED: HYDROcodone/APAP 5-325MG 1 EACH TAB PO PRN (11:09)
--- NOTE | 2019-07-30 11:12 | P.OP ---
Date of Procedure: 07/30/19 Procedure(s) Performed: PREOPERATIVE DIAGNOSIS: Biliary dyskinesia POSTOPERATIVE DIAGNOSIS: Same PROCEDURE: Laparoscopic cholecystectomy SURGEON: Rosaura EBL: Minimal see anesthesia record ANESTHESIA: Gen. COMPLICATIONS: None OPERATIVE PROCEDURE: The patient was brought and placed on the operating room table in the supine position. The patient was placed under general anesthesia at that time. The abdomen was prepped and draped in the usual sterile fashion. A small vertical infraumbilical incision was made. The fascia was grasped with the Linda forceps. The fascia was retracted anteriorly. The Veress needle was advanced into the peritoneal cavity. The saline drop test was normal. Insufflation took place up to 15 mmHg. A 5 mm optical trocar was advanced and the peritoneal cavity. 2 additional 5 mm trochars were placed in the right upper quadrant under direct visualization. A 12 mm trocar was advanced into the epigastric incision site. The gallbladder was retracted superiorly and laterally. The peritoneum overlying the infundibulum was bluntly dissected. The patient's cystic duct was visualized. The junction between the cystic duct common and hepatic duct was identified. The cystic duct was then divided after placement of 3 12 mm clips on the patient's side and one on the specimen side. The cystic artery was identified and clipped as well. A small vessel was seen along the gallbladder fossa and clipped as well. The gallbladder was then removed from the liver bed using electrocautery. The gallbladder was then removed from the epigastric trocar site with an Endo Catch bag. The gallbladder fossa was irrigated with saline. There was no evidence of any bleeding or bi liary drainage seen. The fascia at the 12 millimeter site was closed using a [id number] 0 Vicryl stitch. The trochars were then removed. The skin at all 4 sites was closed using a 4-0 Monocryl stitch. Skin glue was utilized on the incision sites. At the end of this procedure the sponge and needle counts were correct. DISPOSITION: Stable to the recovery room
[2019-07-30] MEDS: HYDROmorphone 0.5 MG/0.5 ML SYRINGE IVP PRN ×2 (11:16→11:40)
[2019-07-30 12:48] VITALS: BP 148/72; PULSE 59; RESP 18
== END 2019-07-30 13:03 | disposition home or self-care (01) ==
LOC: OR 08:16
PROVIDERS: ATTEND Surgery
DX: K81.1 Chronic cholecystitis (principal); K82.8 Other specified diseases of gallbladder; I10 Essential (primary) hypertension; K21.9 Gastro-esophageal reflux disease without esophagitis; J44.9 Chronic obstructive pulmonary disease, unspecified; M19.90 Unspecified osteoarthritis, unspecified site; I83.91 Asymptomatic varicose veins of right lower extremity; Z79.899 Other long term (current) drug therapy; Z87.891 Personal history of nicotine dependence; Z96.651 Presence of right artificial knee joint; Z98.818 Other dental procedure status; Z98.890 Other specified postprocedural states; Z82.3 Family history of stroke; Z80.3 Family history of malignant neoplasm of breast
CPT/HCPCS: 47562; J2250; J1644; J1100; J2710; J0690; J2405; J2001; J3010; J1885; J2370; J0330; J2704; J1170; 88304

== ENCOUNTER → 2019-08-16 | Outpatient (CLI) | payer MEDICAID ==
[2019-08-16 08:58] LABS: Basophils # (A) 0.1 k/uL (0-0.2); Basophils % (A) 1 %; Eosinophils # (A) 0.5 k/uL (0-0.7); Eosinophils % (A) 7 %; HCT 42.3 % (39.0-53.0); HGB 14.4 gm/dL (13.0-17.5); Lymphocytes % (A) 43 %; MCH 32.1 pg (25.0-35.0); MCHC 34.1 g/dL (31.0-37.0); MCV 94.1 fL (80.0-100.0); Mean Platelet Volume 6.8; Monocytes # (A) 0.5 k/uL (0-1.0); Monocytes % (A) 7 %; Neutrophils # (A) 2.8 k/uL (1.3-7.7); Neutrophils % (A) 40 %; Platelet Count 268 k/uL (150-450); RBC 4.49 m/uL (4.30-5.90)
[2019-08-16 16:49] LABS: African American GFR (CKD) 117.4 (60.0-200.0); Albumin 4.4 g/dL (3.80-4.90); Albumin/Globulin Ratio 1.91 (1.60-3.17); Anion Gap 9.3 mmol/L (4.00-12.00); BUN/Creat Ratio 13.75 Ratio (12.00-20.00); Calcium 9.4 mg/dL (8.7-10.3); Carbon Dioxide 26.7 mmol/L (21.6-31.8); Chol/HDL Ratio 2.48; Globulin 2.3 g/dL (1.6-3.3); LDL Cholesterol,Calculated 97.2 mg/dL (0.0-131.0); Non-African American GFR(CKD) 101.3 (60.0-200.0); Potassium 4.2 mmol/L (3.5-5.5); Total Bilirubin 0.8 mg/dL (0.2-1.2); Total Protein 6.7 g/dL (6.2-8.2); VLDL Calculation 16.8 mg/dL (5.00-40.00)
[2019-08-16 16:58] LABS: T4, Free (Free Thyroxine) 1.3 ng/dL (0.80-1.80)
== END | disposition home or self-care (01) ==
LOC: LABWHC1 07:40
PROVIDERS: ATTEND Family Medicine
DX: I10 Essential (primary) hypertension (principal); Z12.5 Encounter for screening for malignant neoplasm of prostate
CPT/HCPCS: 36415; 80053; 80061; 84153; 84439; 84443; 85025

== ENCOUNTER → 2020-02-26 | Outpatient (CLI) | payer MEDICAID ==
--- NOTE | 2020-02-26 12:19 | CTL ---
EXAMINATION TYPE: CT Low Dose Lung DATE OF EXAM ORDERED: 02/26/2020 HISTORY: Personal history tobacco use. Lung cancer screening CT DLP: 114.[address] CTDI: 3.20 mGy Automated exposure control for dose reduction was used. SCREENING VISIT: Initial COMPARISON: None TECHNIQUE: Low dose computed tomography scan was performed through the chest at 1 mm thick sections a nd reconstructed images in the coronal plane at [address] DIAGNOSTIC QUALITY: Satisfactory FINDINGS: LUNG NODULES: None. LUNGS: COPD: Severity: None Fibrosis: Severity: None Lymph nodes: None Other findings: None RIGHT PLEURAL SPACE: Effusion: None Calcification: None Thickening: None Pneumothorax: None LEFT PLEURAL SPACE: Effusion: None Calcification: None Thickening: None Pneumothorax: None HEART: Heart Size: Normal Coronary calcification: None Pericardial effusion: None OTHER FINDINGS: Upper abdomen: Normal Bony thorax: Normal Supraclavicular region: Normal Other: Ascending thoracic aorta at the level the main pulmonary artery measures 3.8 cm. The main pul monary artery at the bifurcation measures 2.7 cm. IMPRESSION: 1. Normal low-dose CT screening thorax FOLLOW UP CT CHEST RECOMMENDATION: Follow-up low-dose CT chest [address] LUNG RAD: 1
== END | disposition home or self-care (01) ==
LOC: RADCTMAIN 07:12
PROVIDERS: ATTEND Family Medicine
DX: Z12.2 Encounter for screening for malignant neoplasm of respiratory organs (principal); F17.210 Nicotine dependence, cigarettes, uncomplicated
CPT/HCPCS: 71271

== ENCOUNTER 2020-05-09 09:28 | Day surgery (SDC) | payer MEDICAID ==
[2020-05-08 08:33] VITALS: BMI 27.8
[~2020-05-09 09:28] MED LIST changes: -DEXAMETHASONE SOD PHOSPHATE 10 MG/ML 1 ML VIAL IV ONE; -HEPARIN SODIUM,PORCINE 5,000 UNIT/ML 1 ML VIAL SQ ONE; -ONDANSETRON 4 MG/2 ML VIAL IVP ONE
[2020-05-09 09:49] VITALS: TEMP 98.6
[2020-05-09] MEDS ORDERED: LIDOCAINE 1% (10MG/ML) FOR IV START INTRADERMA ONE (09:56)
[2020-05-09] MEDS ORDERED: PROPOFOL 10 MG/ML 20 ML VIAL IV ONE (10:31)
[2020-05-09] MEDS ORDERED: MIDAZOLAM 2 MG/2 ML VIAL ONE (10:31)
[2020-05-09] MEDS ORDERED: fentaNYL (PF) 50 MCG/ML 2 ML AMP ONE (10:31)
--- NOTE | 2020-05-09 10:56 | P.PCN ---
Date of Procedure: 05/09/20 Procedure(s) Performed: BRIEF HISTORY: Patient is a 55-year-old pleasant male scheduled for an elective colonoscopy as a part of evaluation of lower abdominal pain and diarrhea for the last several months duration. He has bowel movements anywhere from 4-6 a day which are loose to watery in consistency but no blood or mucus in the stool. PROCEDURE PERFORMED: Colonoscopy with random biopsies. PREOPERATIVE DIAGNOSIS: Y to low quadrant abdominal pain and chronic diarrhea of several months duration. IV sedation per Anesthesia. PROCEDURE: After informed consent was obtained, the patient, was brought into the endoscopy unit. IV sedation was administered by Anesthesia under continuous monitoring. Digital rectal examination was normal. Initially the Olympus CF-160 flexible video colonoscope was then inserted in the rectum, gradually advanced into the cecum without any difficulty. Careful examination was performed as the scope was gradually being withdrawn. Ileocecal valve and the appendiceal orifice were visualized and appeared normal. Prep was excellent. Mucosa of the cecum, ascending colon, transverse colon, descending colon, sigmoid colon, and rectum appeared normal. Random biopsies were done from ascending and descending colon to rule out microscopic/collagenous colitis Retroflexion was performed in the rectum and no lesions were seen. The patient tolerated the procedure well. IMPRESSION: Normal-appearing colon from rectum to cecum with no evidence of colitis or colorectal neoplasia . RECOMMENDATIONS: Findings of this examination were discussed with the patient as well as his family. He was advised to follow with the biopsy results. He will be seen in office in 2-3 weeks..
[2020-05-09 11:34] VITALS: BP 142/86; PULSE 84; RESP 18
== END 2020-05-09 11:40 | disposition home or self-care (01) ==
LOC: ORWHC2ENDO 09:28
PROVIDERS: ATTEND Internal Medicine Gastroenterology
DX: K52.9 Noninfective gastroenteritis and colitis, unspecified (principal); R10.30 Lower abdominal pain, unspecified; K21.9 Gastro-esophageal reflux disease without esophagitis; J44.9 Chronic obstructive pulmonary disease, unspecified; M19.90 Unspecified osteoarthritis, unspecified site; F17.210 Nicotine dependence, cigarettes, uncomplicated; Z79.899 Other long term (current) drug therapy
CPT/HCPCS: 88305; 45380; J2250; J3010; J2704

== ENCOUNTER → 2020-10-17 | Outpatient (CLI) | payer MEDICAID ==
[2020-10-17 21:54] LABS: Gliadin AB IgA, Deaminated NEGATIVE (NEGATIVE); Gliadin AB IgA, Unit <0.2 U/mL; Gliadin AB IgG, Deaminated NEGATIVE (NEGATIVE)
== END | disposition home or self-care (01) ==
LOC: LABWHC1 07:23
PROVIDERS: ATTEND Internal Medicine Gastroenterology
DX: K58.0 Irritable bowel syndrome with diarrhea (principal)
CPT/HCPCS: 36415; 83516

== ENCOUNTER → 2020-12-19 | Outpatient (CLI) | payer MEDICAID ==
--- NOTE | 2020-12-19 10:20 | CT ---
EXAMINATION TYPE: CT sinus wo con DATE OF EXAM: 12/19/2020 COMPARISON: None HISTORY: 55-year-old male J3 2.9, unspecified Chronic Sinusitis CT DLP: 590.1 mGycm Automated exposure control for dose reduction was used. TECHNIQUE: Noncontrast axial views of the paranasal sinuses were obtained. Coronal and sagittal refor matted images were obtained from the axial views for evaluation of nasal cavity, osteomeatal complex and skull base integrity. FINDINGS: PARANASAL SINUSES: Severe mucosal thickening throughout the right ethmoid air cells. Moderate throughout the left ethmoi d air cells. Lobulated mucosal thickening posterior wall left sphenoid sinus. Scattered moderate lobulated mucosal thickening throughout the right maxillary sinus and mild on the left. Mild mucosal thickening bilateral frontal sinuses. There is no air-fluid level. Reactive letty- osteogenesis is not seen. There is no destruction of the osseous hagen of the paranasal sinuses. THE NASAL CAVITY: Opacification extends to the right osteomeatal complex. The left osteomeatal complex is patent. The nasal septum is minimally deviated towards the right. The imaged brain and orbits are normal in appearance. Mastoid air cells and middle ear cavities are well pneumatized. Reformatted images confirm above findings. IMPRESSION: 1. Chronic pansinusitis; severe mucosal thickening in the right ethmoid air cells. Moderate within th e left ethmoid air cells and right maxillary sinus. Mild within the left maxillary sinus, left spheno id sinus, and bifrontal sinuses. 2. Opacification extends to the right osteomeatal complex. 3. Slight rightward nasal septal deviation.
== END | disposition home or self-care (01) ==
LOC: RADCTMAIN 08:40
PROVIDERS: ATTEND Otolaryngology
DX: J32.4 Chronic pansinusitis (principal); J34.2 Deviated nasal septum
CPT/HCPCS: 70486

== ENCOUNTER → 2021-02-04 | Outpatient (CLI) | payer MEDICAID, OTHER | END | disposition home or self-care (01) | LOC: LABWHC1 10:11 | PROVIDERS: ATTEND Emergency Medicine | DX: U07.1 COVID-19 (principal) | CPT/HCPCS: 87635 ==

== ENCOUNTER → 2021-04-21 | Outpatient (CLI) | payer MEDICAID ==
[2021-04-21 11:39] LABS: ALT 27 U/L (10-49); AST 25 U/L (14-35); African American GFR (CKD) 110.3 (60.0-200.0); Albumin 4.4 g/dL (3.8-4.9); Albumin/Globulin Ratio 1.69 (1.60-3.17); Alkaline Phosphatase 66 U/L (41-126); BUN/Creat Ratio 11.11 Ratio (12.00-20.00); Calcium 9.3 mg/dL (8.7-10.3); Carbon Dioxide 22.8 mmol/L (20.0-27.5); Chloride 103 mmol/L (96-109); Chol/HDL Ratio 3.48 Ratio; Globulin 2.6 g/dL (1.6-3.3); Glucose 117 mg/dL (70-110); LDL Cholesterol,Calculated 107.5 mg/dL (0.0-131.0); Non-African American GFR(CKD) 95.1 (60.0-200.0); Sodium 140 mmol/L (135-145)
[2021-04-21 11:41] LABS: Basophils # (A) 0.06 X 10*3/uL (0.00-0.10); Basophils % (A) 0.9 %; Eosinophils # (A) 0.32 X 10*3/uL (0.04-0.35); Eosinophils % (A) 4.7 %; HCT 43.4 % (39.6-50.0); HGB 14.2 g/dL (13.0-17.0); Immature Grans, Automated 0.7 %; Lymphocytes # (A) 2.66 X 10*3/uL (0.90-5.00); Lymphocytes % (A) 38.7 %; MCH 30.1 pg (27.0-32.0); MCHC 32.7 g/dL (32.0-37.0); MCV 91.9 fL (80.0-97.0); Monocytes # (A) 0.78 X 10*3/uL (0.20-1.00); Monocytes % (A) 11.3 %; NRBC Per 100 WBC 0 /100 WBCS (0.0-0.0); Neutrophils # (A) 3.01 X 10*3/uL (1.80-7.70); Neutrophils % (A) 43.7 %; Platelet Count 253 X 10*3/uL (140-440); RBC 4.72 X 10*6/uL (4.40-5.60); RDW 12.8 % (11.5-14.5); WBC 6.88 X 10*3/uL (4.50-10.00)
== END | disposition home or self-care (01) ==
LOC: LABWHC1 07:13
PROVIDERS: ATTEND Family Medicine
DX: Z00.00 Encounter for general adult medical examination without abnormal findings (principal); Z12.5 Encounter for screening for malignant neoplasm of prostate
CPT/HCPCS: 36415; 80053; 80061; 84153; 84443; 85025

== ENCOUNTER → 2021-04-24 | Outpatient (CLI) | payer MEDICAID | END | disposition home or self-care (01) | LOC: LABWHC1 08:18 | PROVIDERS: ATTEND Family Medicine | DX: R03.0 Elevated blood-pressure reading, without diagnosis of hypertension (principal) | CPT/HCPCS: 36415; 93005 ==

== ENCOUNTER 2022-02-18 08:06 | Emergency (ER) | payer MEDICAID ==
[2022-02-18] MEDS ORDERED: diphenhydrAMINE 50 MG/ML 1 ML VIAL IVP STA (08:15)
[2022-02-18] MEDS ORDERED: methylPREDNISolone SOD SUCCI 125 MG/2 ML VIAL IV STA (08:15)
[2022-02-18] MEDS ORDERED: FAMOTIDINE 20 MG/2 ML VIAL IV STA (08:15)
--- NOTE | 2022-02-18 08:17 | ED ---
General Adult HPI - General Stated complaint: Facial Swelling,Poss Allergic Reaction Time Seen by Provider: 02/18/22 08:15 Source: patient, RN notes reviewed Mode of arrival: ambulatory Limitations: no limitations - History of Present Illness Initial comments: This a 57-year-old male presents emergency Department chief complaint ALLERGIC reaction. Patient states that he started having increased facial, lip swelling. Patient states that he's had this happen the past she recently ran a singular. Patient states he has no difficulty swallowing but states that he's had problems swelling around his neck before. Patient states he took Benadryl last night with no relief. Patient denies any medication soaps lotions detergents denies being on TAMIKA inhibitor. Patient states she's had this happen several times in which is unclear why this is recurrent. - Related Data Home Medications Medication Instructions Recorded Confirmed EPINEPHrine (Auto Inject) [Epipen] 0.3 mg IM ONCE PRN 01/02/18 05/09/20 Cholecalciferol [Vitamin D3 (25 1,000 unit PO DAILY 07/26/19 05/09/20 Mcg = 1000 Iu)] Montelukast [Singulair] 10 mg PO DAILY 07/26/19 05/09/20 Dicyclomine [Bentyl] 10 mg PO TID 05/08/20 05/09/20 Omeprazole 20 mg PO DAILY 05/08/20 05/09/20 Vortioxetine Hydrobromide 10 mg PO DAILY 05/08/20 05/09/20 [Trintellix] Previous Rx's Medication Instructions Recorded Cetirizine HCl [Zyrtec] 10 mg PO DAILY #60 tab 11/12/14 Montelukast [Singulair] 10 mg PO DAILY #90 tab 02/18/22 Allergies Allergy/AdvReac Type Severity Reaction Status Date / Time UNKNOWN ALLERGIC REACTION Allergy Severe SWELLING Uncoded 02/18/22 08:18 LIP , DYSPNEA- CARRIES EPI-PEN Review of Systems ROS Statement: Those systems with pertinent positive or pertinent negative responses have been documented in the HPI. ROS Other: All systems not noted in ROS Statement are negative. Past Medical History Past Medical History: COPD, GERD/Reflux, Hypertension, Osteoarthritis (OA) Additional Past Medical History / Comment(s): Hx HTN (no current meds)., Hx allergic reaction, unknown cause, carries Epi pen. , back pain (hx injecti ons)., diarrhea. History of Any Multi-Drug Resistant Organisms: None Reported Past Surgical History: Cholecystectomy, Joint Replacement, Orthopedic Surgery Additional Past Surgical History / Comment(s): abdifatah knee arthroscopy(rt x 2), Total Right Knee, Left shoulder, COLONOSCOPY, 2 LOWER DENTAL IMPLANTS. Total Left Hip Past Anesthesia/Blood Transfusion Reactions: No Reported Reaction Past Psychological History: No Psychological Hx Reported Smoking Status: Former smoker Past Alcohol Use History: Occasional Past Drug Use History: None Reported - Past Family History Mother Family Medical History: Cancer Additional Family Medical History / Comment(s): breast cancer Father Family Medical History: CVA/TIA General Exam Limitations: no limitations General appearance: alert, in no apparent distress Head exam: Present: atraumatic, normocephalic, normal inspection Eye exam: Present: normal appearance, PERRL, EOMI. Absent: scleral icterus, conjunctival injection, periorbital swelling ENT exam: Present: mucous membranes moist, TM's normal bilaterally, normal external ear exam. Absent: normal exam (Swallowing secretions well), normal oropharynx (Upper lip, facial swelling noted) Neck exam: Present: normal inspection, full ROM. Absent: tenderness, meningismus, lymphadenopathy Respiratory exam: Present: normal lung sounds bilaterally. Absent: respiratory distress, wheezes, rales, rhonchi, stridor Cardiovascular Exam: Present: regular rate, normal rhythm, normal heart sounds. Absent: systolic murmur, diastolic murmur, rubs, gallop, clicks Course Vital Signs 02/18/22 08:14 Temperature 98.0 F Pulse Rate 85 Respiratory 18 Rate Blood Pressure 145/79 O2 Sat by Pulse 98 Oximetry Medical Decision Making - Medical Decision Making Was pt. sent in by a medical professional or institution (, PA, SENIOR UI UX DEVELOPER, urgent care, hospital, or residential...) When possible be specific @ -No Did you speak to anyone other than the patient for history (EMS, parent, family, police, friend...)? What history was obtained from this source @ -No Did you review nursing and triage notes (agree or disagree)? Why? @ -I reviewed and agree with nursing and triage notes Were old charts reviewed (outside hosp., previous admission, EMS record, old EKG, old radiological studies, urgent care reports/EKG's, residential records)? Report findings @ -No old charts were reviewed Differential Diagnosis (chest pain, altered mental status, abdominal pain women, abdominal pain men, vaginal bleeding, weakness, fever, dyspnea, syncope, headache, dizziness, GI bleed, back pain, seizure, CVA, palpatations, mental he alth)? @ -ALLERGIC reaction, angioedema, dental abscess, facial cellulitis, hereditary angioedema, this list is not all-inclusive EKG interpreted by me (3pts min.). @ -none X-rays interpreted by me (1pt min.). @ -None done CT interpreted by me (1pt min.). @ -None done U/S interpreted by me (1pt. min.). @ -None done What testing was considered but not performed or refused? (CT, X-rays, U/S, labs)? Why? @ -None What meds were considered but not given or refused? Why? @ -None Did you discuss the management of the patient with other professionals (professionals i.e. , PA, SENIOR UI UX DEVELOPER, lab, RT, psych nurse, social media manager, state historical society director, teacher, air antisubmarine officer, renal case manager)? Give summary @ -No Was smoking cessation discussed for >3mins.? @ -No Was critical care preformed (if so, how long)? @ -No Were there social determinants of health that impacted care today? How? (Homelessness, low income, unemployed, alcoholism, drug addiction, transportation, low edu. Level, literacy, decrease access to med. care, [facility], rehab)? @ -No Was there de-escalation of care discussed even if they declined (Discuss DNR or withdrawal of care, Hospice)? DNR status @ -No What co-morbidities impacted this encounter? (DM, HTN, Smoking, COPD, CAD, Cancer, CVA, ARF, Chemo, Hep., AIDS, mental health diagnosis, sleep apnea, morbid obesity)? @ -None Was patient admitted / discharged? Hospital course, mention meds given and route, prescriptions, significant lab abnormalities, going to OR and other pertinent info. @ -Discharged patient did receive Solu-Medrol, Pepcid, Singulair and Benadryl. Patient will be discharged in stable condition will continue steroids, Singulair. Return parameters were discussed Undiagnosed new problem with uncertain prognosis? @ -No Drug Therapy requiring intensive monitoring for toxicity (Heparin, Nitro, Insulin, Cardizem)? @ -No Were any procedures done? @ -No Diagnosis/symptom? @ -ALLERGIC reaction Acute, or Chronic, or Acute on Chronic? @ -Acute Uncomplicated (without systemic symptoms) or Complicated (systemic symptoms)? @ -Complicated Side effects of treatment? @ -No Exacerbation, Progression, or Severe Exacerbation? @ -No Poses a threat to life or bodily function? How? (Chest pain, USA, VT, pneumonia, PE, COPD, DKA, ARF, appy, cholecystitis, CVA, Diverticulitis, Homicidal, Suicidal, threat to staff... and all critical care pts) @ -yes Disposition Clinical Impression: Angioedema Disposition: HOME SELF-CARE Condition: Stable Instructions (If sedation given, give patient instructions): Angioedema (ED) Additional Instructions: Please return to the Emergency Department if symptoms worsen or any other concerns. Prescriptions: Montelukast [Singulair] 10 mg PO DAILY #90 tab Is patient prescribed a controlled substance at d/c from ED?: No Referrals: Jonnie Jacobs MD [Primary Care Provider] - 1-2 days Time of Disposition: 09:57
[2022-02-18 08:18] VITALS: RESP 18; TEMP 98
[2022-02-18] MEDS ORDERED: SODIUM CHLORIDE 0.9% 1,000 ML IV ONE (08:24)
[2022-02-18] MEDS ORDERED: MONTELUKAST 10 MG TAB PO STA (08:49)
[2022-02-18 10:12] VITALS: BP 132/78; PULSE 80
== END 2022-02-18 10:12 | disposition home or self-care (01) ==
LOC: EC 08:06
DX: T78.3XXA Angioneurotic edema, initial encounter (principal); I10 Essential (primary) hypertension; J44.9 Chronic obstructive pulmonary disease, unspecified; K21.9 Gastro-esophageal reflux disease without esophagitis; M19.90 Unspecified osteoarthritis, unspecified site; Z79.899 Other long term (current) drug therapy; Z87.891 Personal history of nicotine dependence; Z88.8 Allergy status to other drugs, medicaments and biological substances
CPT/HCPCS: 99283; 96374; 96375 ×2; 96361; J1200; J2930

== ENCOUNTER → 2022-03-01 | Outpatient (CLI) | payer MEDICAID ==
[2022-03-01 10:42] LABS: Basophils # (A) 0.06 X 10*3/uL (0.00-0.10); Basophils % (A) 0.7 %; Eosinophils % (A) 3.5 %; HCT 41.7 % (39.6-50.0); HGB 13.9 g/dL (13.0-17.0); Immature Grans, Automated 0.4 %; Lymphocytes # (A) 3.47 X 10*3/uL (0.90-5.00); Lymphocytes % (A) 40.6 %; MCH 30.3 pg (27.0-32.0); MCHC 33.3 g/dL (32.0-37.0); MCV 90.8 fL (80.0-97.0); Mean Platelet Volume 9.2 fL (9.5-12.2); Monocytes # (A) 0.92 X 10*3/uL (0.20-1.00); Monocytes % (A) 10.8 %; NRBC Per 100 WBC 0 /100 WBCS (0.0-0.0); Neutrophils # (A) 3.76 X 10*3/uL (1.80-7.70); Platelet Count 299 X 10*3/uL (140-440); RBC 4.59 X 10*6/uL (4.40-5.60); RDW 12.4 % (11.5-14.5); WBC 8.54 X 10*3/uL (4.50-10.00)
[2022-03-01 11:23] LABS: Chol/HDL Ratio 3.12 Ratio; LDL Cholesterol,Calculated 124.2 mg/dL (0.0-131.0)
[2022-03-01 11:24] LABS: ALT 25 U/L (10-49); AST 21 U/L (14-35); African American GFR (CKD) 110.4 (60.0-200.0); Albumin 4.4 g/dL (3.8-4.9); Albumin/Globulin Ratio 1.73 (1.60-3.17); Alkaline Phosphatase 57 U/L (41-126); BUN/Creat Ratio 14.27 Ratio (12.00-20.00); Blood Urea Nitrogen 12.6 mg/dL (9.0-27.0); Calcium 9.1 mg/dL (8.7-10.3); Carbon Dioxide 24.9 mmol/L (20.0-27.5); Chloride 100 mmol/L (96-109); Globulin 2.5 g/dL (1.6-3.3); Glucose 117 mg/dL (70-110); Non-African American GFR(CKD) 95.2 (60.0-200.0); Sodium 135 mmol/L (135-145); Total Protein 6.9 g/dL (6.2-8.2)
== END | disposition home or self-care (01) ==
LOC: LABWHC1 07:10
PROVIDERS: ATTEND Family Medicine
DX: Z00.00 Encounter for general adult medical examination without abnormal findings (principal); Z12.5 Encounter for screening for malignant neoplasm of prostate
CPT/HCPCS: 36415; 80053; 80061; 84153; 84439; 84443; 85025

== ENCOUNTER → 2022-05-03 | Outpatient (CLI) | payer MEDICAID | END | disposition home or self-care (01) | LOC: LABPAT 15:12 | PROVIDERS: ATTEND Orthopaedic Surgery | DX: Z01.812 Encounter for preprocedural laboratory examination (principal); Z22.322 Carrier or suspected carrier of Methicillin resistant Staphylococcus aureus; M16.11 Unilateral primary osteoarthritis, right hip | CPT/HCPCS: 87070 ==

== ENCOUNTER → 2022-05-10 | Outpatient (CLI) | payer MEDICAID ==
[2022-05-10 15:36] LABS: Basophils # (A) 0.08 X 10*3/uL (0.00-0.10); Basophils % (A) 1.1 %; Eosinophils # (A) 0.37 X 10*3/uL (0.04-0.35); HCT 43.7 % (39.6-50.0); HGB 14.4 g/dL (13.0-17.0); Immature Grans, Automated 0.4 %; Lymphocytes # (A) 2.84 X 10*3/uL (0.90-5.00); Lymphocytes % (A) 38.4 %; MCH 30.8 pg (27.0-32.0); MCV 93.4 fL (80.0-97.0); Mean Platelet Volume 9.4 fL (9.5-12.2); Monocytes # (A) 0.66 X 10*3/uL (0.20-1.00); Monocytes % (A) 8.9 %; NRBC Per 100 WBC 0 /100 WBCS (0.0-0.0); Neutrophils # (A) 3.42 X 10*3/uL (1.80-7.70); Neutrophils % (A) 46.2 %; Platelet Count 258 X 10*3/uL (140-440); RBC 4.68 X 10*6/uL (4.40-5.60); RDW 12.6 % (11.5-14.5)
[2022-05-10 15:44] LABS: INR 0.86 (0.90-1.11); Prothrombin Time 9.8 sec (9.9-11.9)
[2022-05-10 15:45] LABS: African American GFR (CKD) 108.3 (60.0-200.0); Anion Gap 12.7 mmol/L (10.00-18.00); BUN/Creat Ratio 14.65 Ratio (12.00-20.00); Blood Urea Nitrogen 13.3 mg/dL (9.0-27.0); Calcium 9.5 mg/dL (8.7-10.3); Non-African American GFR(CKD) 93.5 (60.0-200.0); Potassium 4.6 mmol/L (3.5-5.5)
== END | disposition home or self-care (01) ==
LOC: LABPAT 08:18
PROVIDERS: ATTEND Orthopaedic Surgery
DX: Z01.812 Encounter for preprocedural laboratory examination (principal); M16.11 Unilateral primary osteoarthritis, right hip
CPT/HCPCS: 80048; 85025; 85610

== ENCOUNTER 2022-05-11 09:41 | Observation (INO) | payer MEDICAID ==
[2022-05-07 13:28] VITALS: BMI 29.1
--- NOTE | 2022-05-10 09:32 | P.HPOR ---
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 He notes his hip gives out. He has pain with weightbearing activities. He's tried medications without much relief. He notes his pain significantly limits his normal function and activities. Review of Systems as per HPI Past Medical History Past Medical History: COPD, GERD/Reflux, Hypertension, Osteoarthritis (OA) Additional Past Medical History / Comment(s): Hx allergic reaction- unknown cause- carries Epi pen., loose stools since gallbladder removed. History of Any Multi-Drug Resistant Organisms: None Reported Past Surgical History: Cholecystectomy, Joint Replacement, Orthopedic Surgery Additional Past Surgical History / Comment(s): abdifatah knee arthroscopy(rt x 2), Total Right Knee, Left shoulder, COLONOSCOPY, 2 LOWER DENTAL IMPLANTS. Total Left Hip Past Anesthesia/Blood Transfusion Reactions: No Reported Reaction Past Psychological History: No Psychological Hx Reported Smoking Status: Former smoker Past Alcohol Use History: Occasional Additional Past Alcohol Use History / Comment(s): quit smoking 2 yrs ago (2020), smoked 1-3 packs per week, started smoking age 18. Past Drug Use History: Marijuana Additional Drug Use History / Comment(s): occasional marijuana/ cbd lotion - Past Family History Mother Family Medical History: Cancer Additional Family Medical History / Comment(s): breast cancer Father Family Medical History: CVA/TIA Medications and Allergies Home Medications Medication Instructions Recorded Confirmed Type Cetirizine HCl [Zyrtec] 10 mg PO DAILY #60 tab 11/12/14 05/07/22 Rx EPINEPHrine (Auto Inject) [Epipen] 0.3 mg IM ONCE PRN 01/02/18 05/07/22 History Omeprazole 20 mg PO DAILY 05/08/20 05/07/22 History Montelukast [Singulair] 10 mg PO DAILY #90 tab 02/18/22 05/07/22 Rx Dicyclomine [Bentyl] 40 mg PO BID 05/07/22 05/07/22 History HYDROcodone/APAP 5-325MG [Herod 1 tab PO Q6HR PRN 05/07/22 05/07/22 History 5-325] lisinopriL [Zestril] 10 mg PO DAILY 05/07/22 05/07/22 History Allergies Allergy/AdvReac Type Severity Reaction Status Date / Time UNKNOWN ALLERGIC REACTION Allergy Severe Difficulty Uncoded 05/07/22 13:35 Swallowing,Swelling of Lip-has epipen Physical Examination - Hip right Gait: antalgic Tenderness with palpation: anterior Pain with motion: internal rotation and hip flexion ROM: flexion: 70 degrees ROM: internal rotation: 5 degrees (With pain) ROM: external rotation: 50 degrees Strength: extension: 5/5 Strength: flexion: 5/5 Strength: abduction: 5/5 Tests: impingement tests: positive Results The patient is a well-developed well-nourished male proximal a 6 foot tall, 210 pounds. HEENT exam is nonfocal, neck is supple. His distal neurovascular appears intact in the right lower extremity. Clinically he has shortening of the right lower extremity compared to the left. - Diagnostic results Hip x-ray: image reviewed (2 views of right hip obtaining office show severe right hip osteoarthrosis with subchondral sclerosis and [id number] changes.) Assessment and Plan Assessment: Right hip severe osteoarthrosis Plan: I talked to the patient length regarding his condition along with treatment options. At this point is quite limited because of pain related to his osteoarthrosis in the right hip. After thorough discussion he opted to proceed with surgery. We will plan to proceed with right total hip arthroplasty utilizing an anterior approach. Risks and benefits were discussed at length in layman's terms. Potentially we will perform that as an outpatient procedure.
[~2022-05-11 09:41] MED LIST changes: +ACETAMINOPHEN TAB 500 MG TAB PO PRN; +DEXAMETHASONE SOD PHOSPHATE 4 MG/ML 1 ML VIAL IV ONE; +HYDROmorphone 0.5 MG/0.5 ML SYRINGE IVP PRN; -LACTATED RINGERS 1,000 ML IV SCH; +LIDOCAINE 1% (10MG/ML) FOR IV START INTRADERMA PRN; +MELOXICAM 7.5 MG TAB PO PRN; +MIDAZOLAM 2 MG/2 ML VIAL IV PRN; +ONDANSETRON 4 MG/2 ML VIAL IVP ONE; +TRANEXAMIC ACID IN NACL,ISO-OS 1,000 MG in SALINE 1 100ML.BAG IVPB PRN
[2022-05-11] MEDS: LACTATED RINGERS 1,000 ML IV SCH ×2 (10:55→23:30)
[2022-05-11] MEDS ORDERED: MIDAZOLAM 2 MG/2 ML VIAL IVP ONE (11:18)
[2022-05-11] MEDS ORDERED: PROPOFOL 10 MG/ML 20 ML VIAL IV ONE (11:46)
[2022-05-11] MEDS ORDERED: fentaNYL (PF) 50 MCG/ML 2 ML AMP ONE (11:46)
[2022-05-11] MEDS ORDERED: TRANEXAMIC ACID IN NACL,ISO-OS 1,000 MG/100 ML BAG ONE (11:46)
[2022-05-11] MEDS ORDERED: KETAMINE 10 MG/ML 20 ML VIAL ONE (11:46)
[2022-05-11] MEDS ORDERED: MIDAZOLAM 2 MG/2 ML VIAL ONE (11:46)
[2022-05-11] MEDS ORDERED: DEXAMETHASONE SOD PHOSPHATE 4 MG/ML 1 ML VIAL ONE (11:46)
[2022-05-11] MEDS ORDERED: ROPIVACAINE 5 MG/ML 30 ML VIAL ONE (11:46)
[2022-05-11] MEDS ORDERED: ceFAZolin 3,000 MG in SODIUM CHLORIDE 0.9% IRRIGATIO 3,000 ML IRRIGATION ONE (12:32)
--- NOTE | 2022-05-11 13:01 | P.ANPRN ---
Procedure Note - Anesthesia - Nerve Block Performed Right Adarsh Single Time Out Performed: Yes Date of Procedure: 05/11/22 Procedure Start Time: 11:18 Procedure Stop Time: 11:28 Location of Patient: PreOp Indication: Acute Post-Operative Pain, Requested by Surgeon Sedation Type: Sedate with meaningful contact maintained Preparation: Sterile Prep Position: Supine Needle Types: Pajunk Needle Gauge: 21 Ultrasound used to visualize needle placement: Yes Ultrasound used to observe medication spread: Yes Blood Aspirated: No Pain Paresthesia on Injection Noted: No Resistance on Injection: Normal Image Stored and Saved: Yes Events: Uneventful and Well Tolerated (Ropivacaine 0.5 20 mL plus dexamethasone 4 mg)
[2022-05-11] MEDS ORDERED: HYDROmorphone 0.5 MG/0.5 ML SYRINGE IVP PRN (13:46)
[2022-05-11] MEDS ORDERED: MAGNESIUM HYDROXIDE 2,400 MG/10 ML CUP PO PRN (13:46)
[2022-05-11] MEDS ORDERED: HYDROcodone/APAP 5-325MG 1 EACH TAB PO PRN (13:46)
[2022-05-11] MEDS ORDERED: NALOXONE 0.4 MG/ML 1 ML VIAL IV PRN (13:46)
--- NOTE | 2022-05-11 14:04 | P.OP ---
Date of Procedure: 05/11/22 Preoperative Diagnosis: Right hip severe osteoarthrosis Postoperative Diagnosis: Same Procedure(s) Performed: Right total hip arthroplastyanterior approachpress-fit Implants: Depuy Corail size 16 collared press-fit 125 femoral stemhigh offset, 36+1.5 cobalt chrome femoral head, 54 mm [place] acetabular shell with neutral polyethylene liner. Anesthesia: regional, spinal Surgeon: Raghu Zimmerman Rig Welder #1: Ozzy Torres Estimated Blood Loss (ml): 100 Pathology: other (Femoral head) Condition: stable Disposition: PACU Indications for Procedure: The patient's a 57-year-old male who presents with progressive right hip pain secondary to osteoporosis despite conservative measures. A discussion of the risks and benefits of operative intervention versus continued conservative measures was made with patient. He opted to proceed with surgery. Operative risks to include infection neurovascular injury, development of blood clots, leg length discrepancy, fracture, instability and possible need for subsequent procedures was discussed. Informed consent was obtained. Operative Findings: As below Description of Procedure: The patient was brought to the operating room, and after induction of spinal anesthesia was placed supine on the Anastasia table. Positioning was checked with fluoroscopy. The right hip was then prepped and draped in a normal fashion. A 12 cm incision was then made starting 2 fingerbreadths distal and 3 finger breaths posterior to the ASIS in line with the proximal femur. The skin was incised sharply. Subcutaneous tissues were divided sharply. Electrocautery was used for hemostasis. The fascia was split in line with skin incision. The interval between the sartorius and tensor fascia johnathan was then bluntly developed. The posterior fascia was opened with electrocautery. The lateral circumflex vessels were identified and cauterized prior to sectioning. A retractor was placed along the superior femoral neck as well as the anterior acetabular rim. A wide capsulotomy was performed. The neck cut was then made at a 45 angle to the shaft approximately 1 1/2 cm above the level of the lesser trochanter. The head was extracted. Attention was then paid towards preparing the acetabular. Anterior and posterior retractors were placed. The remaining capsular labral tissue sharply debrided clearly defining the acetabular margins. I began reaming with a 49 mm reamer taking care to initially medialize then reaming at 45 of abduction and 20 of anteversion. Sequential reaming is performed up to 53 mm. A trial 54 mm acetabular shell was inserted in the same orientation and was fully seated. There was good rim fit and stability. Positioning was checked with fluoroscopy. The final 54 mm acetabular shell was inserted again at 45 of abduction and 20 of anteversion. This was fully seated. There was good rim fit and stability. Again fluoroscopy was used to check the adequacy of placement. A neutral polyethylene liner was gently impacted. Care was taken to avoid any soft tissue interposition. Pulsatile lavage was utilized. Attention was then paid towards preparing the proximal femur. The central region was cleared of soft tissue. A canal finder was used to find the femoral canal. Sequential broaching was performed up to size 16 taking care to lateralize proximally. A calcar mill was used to fashion the medial calcar. There was good rotational stability. A 125 high offset neck along with a 36 mm +1.5 head was placed. The hip was gently reduced. Fluoroscopy was used to check the adequacy of positioning along with leg lengths. I felt both were good. The hip was gently dislocated. The trial components were removed. The final size 16 collared 125 high offset press-fit femoral stem was inserted parallel to the posterior cortex. This was fully seated and there was good rotational stability. A 36 mm 1.5 head was placed. This was gently impacted. The hip was then gently reduced. Final fluoroscopic view showed adequate placement implant along with baptist of leg length. Stability was checked with 80 of external rotation and 60 of extension of the right hip. The wound was irrigated with sterile lavage. The fascia was closed with running 0 Vicryl suture. There was minimal drainage therefore a deep drain was not placed. The second dose of IV TXA was given. The subcutaneous tissues were reapproximated interrupted 2-0 Vicryl sutures. The skin was reapproximated with 3-0 subcuticular strata fix suture. Skin tape and adhesive was applied. A sterile dressing was applied. The patient was then awoken from sedation and transferred to recovery room in good condition. Blood loss was estimated at 100 mL. No complications were incurred. Sponge and needle counts were correct at the end of the case. Ozzy LOVE assisted during the major components is case to include exposure, bone resection, implantation, and closure.
--- NOTE | 2022-05-11 14:26 | XR ---
EXAMINATION TYPE: XR Hip Limited RT, XR Hip Limited RT DATE OF EXAM: 05/11/2022 2:21 PM INDICATION: Patient age:Male; 57 years old; Reason for study: Status post hip surgery, assess surgical alignment; PHH. COMPARISON: Fluoroscopic images of the right hip of the same date. TECHNIQUE: The right hip was examined in the frontal projection. FINDINGS: Postsurgical changes from right total hip arthroplasty. Hardware appears intact with approp riate alignment. There is associated soft tissue edema and soft tissue gas. No acute fracture or disl ocation. IMPRESSION: Postsurgical changes from right total hip arthroplasty. Hardware appears intact with appropriate alig nment.
--- NOTE | 2022-05-11 14:31 | FL ---
Intraoperative/procedural fluoroscopic services were provided for right total hip arthroplasty. Total fluoroscopy time is 20 seconds with a total of 5 submitted images to PACS. Total DAP 0.50021. Please see the operative note for further details.
[2022-05-11] MEDS ORDERED: LACTATED RINGERS 1,000 ML IV ONE (14:35)
[2022-05-11] MEDS: HYDROmorphone 1 MG/ML 1 ML SYRINGE IVP PRN ×3 (15:04→20:50)
--- NOTE | 2022-05-11 16:59 | P.CONS ---
History of Present Illness - Reason for Consult Consult date: 05/11/22 - Chief Complaint Medical management - History of Present Illness 57-year-old man with medical history of hypertension, seasonal ALLERGIES presented for elective hip replacement. Medicine was consulted by orthopedic Surgery service for medical management. Patient has no complaints at this time, says pain is well controlled. Patient denies fevers, chills, nausea, vomiting, chest pain, palpitations, syncope, presyncope, cough, dyspnea, abdominal pain, constipation, diarrhea, dysuria, dyschezia, numbness/weakness or tremors. Upon my evaluation, patient is afebrile, 125/81, heart rate 59, 98% on room air. No labs to review. Postoperative hip x-ray shows post surgical changes from right hip total arthroplasty with intact hardware with appropriate alignment. All Systems reviewed and pertinent positives and negatives noted in HPI, all other symptoms are negative Gen: in no apparent distress, resting comfortably in bed Eyes: PERRL, no scleral injection or icterus HENT: normocephalic, atraumatic, good hearing acuity, moist mucous membranes Neck: no tracheal deviation, full range of motion Resp: good air exchange, breathing comfortably with no accessory muscle use, no tactile fremitus CVS: good distal perfusion x 4, no pitting edema GI: soft, NTTP, ND, no hepatosplenomegaly : no suprapubic tenderness, no CVAT, bobby catheter not present MSK: no clubbing, no cyanosis, no noted contractures of extremities Skin: no noted rashes, petechiae; temperature of skin is appropriate Neuro: moving all extremities without signs of weakness, CN II-XII intact Psych: cooperative, euthymic mood, insight and judgment intact Assessment: Hypertension Seasonal ALLERGIES Status post right hip arthroplasty Plan: Vital signs reviewed and noted in HPI Ordered CBC, basic metabolic panel, magnesium for tomorrow Orthopedic surgery note reviewed, no immediate complications, minimal blood loss. Continue home Prilosec Continue home cetirizine, montelukast Continue home lisinopril Continue home dicyclomine Patient is full code Past Medical History Past Medical History: COPD, GERD/Reflux, Hypertension, Osteoarthritis (OA) Additional Past Medical History / Comment(s): Hx allergic reaction- unknown cause- carries Epi pen., loose stools since gallbladder removed. History of Any Multi-Drug Resistant Organisms: None Reported Past Surgical History: Cholecystectomy, Joint Replacement, Orthopedic Surgery Additional Past Surgical History / Comment(s): sridhar knee arthroscopy(rt x 2), Total Right Knee, Left shoulder, COLONOSCOPY, 2 LOWER DENTAL IMPLANTS. SRIDHAR Hips Past Anesthesia/Blood Transfusion Reactions: No Reported Reaction Past Psychological History: No Psychological Hx Reported Smoking Status: Former smoker Past Alcohol Use History: Occasional Additional Past Alcohol Use History / Comment(s): quit smoking 2 yrs ago (2020), smoked 1-3 packs per week, started smoking age 18. Past Drug Use History: Marijuana Additional Drug Use History / Comment(s): occasional marijuana/ cbd lotion - Past Family History Mother Family Medical History: Cancer Additional Family Medical History / Comment(s): breast cancer Father Family Medical History: CVA/TIA Medications and Allergies Home Medications Medication Instructions Recorded Confirmed Type Cetirizine HCl [Zyrtec] 10 mg PO DAILY #60 tab 11/12/14 05/07/22 Rx EPINEPHrine (Auto Inject) [Epipen] 0.3 mg IM ONCE PRN 01/02/18 05/07/22 History Omeprazole 20 mg PO DAILY 05/08/20 05/07/22 History Montelukast [Singulair] 10 mg PO DAILY #90 tab 02/18/22 05/07/22 Rx Dicyclomine [Bentyl] 40 mg PO BID 05/07/22 05/07/22 History HYDROcodone/APAP 5-325MG [[place] 1 tab PO Q6HR PRN 05/07/22 05/07/22 History 5-325] lisinopriL [Zestril] 10 mg PO DAILY 05/07/22 05/07/22 History Allergies Allergy/AdvReac Type Severity Reaction Status Date / Time UNKNOWN ALLERGIC REACTION Allergy Severe Difficulty Uncoded 05/11/22 11:00 Swallowing,Swelling of Lip-has epipen Physical Exam Osteopathic Statement: *. No significant issues noted on an osteopathic structural exam other than those noted in the History and Physical/Consult. Vitals: Vital Signs Temp Pulse Resp BP Pulse Ox 05/11/22 14:31 52 L 16 143/69 100 05/11/22 14:14 56 L 16 126/86 98 05/11/22 13:59 97.6 F 59 L 16 125/81 98 05/11/22 11:35 60 16 135/94 97 05/11/22 10:47 98.3 F 60 16 139/86 97 Intake and Output 05/11/22 05/11/22 05/11/22 06:59 14:59 22:59 Intake Total 1051 Output Total 50 Balance 1001 Intake: IV 1051 Output: Estimated Blood Loss 50 Other: Weight 98.5 kg
[2022-05-11] MEDS: HYDROcodone/APAP 7.5-325MG 1 EACH TAB PO PRN ×2 (17:16→23:28)
[2022-05-11] MEDS ORDERED: SENNOSIDES-DOCUSATE SODIUM 1 EACH TAB PO SCH (21:00)
[2022-05-11] MEDS ORDERED: AMITRIPTYLINE HCL 25 MG TAB PO SCH (21:15)
[2022-05-12] MEDS: HYDROcodone/APAP 7.5-325MG 1 EACH TAB PO PRN ×2 (05:52→11:55)
[2022-05-12 07:55] LABS: Basophils % (A) 0 %; Eosinophils % (A) 0 %; HCT 38.6 % (39.0-53.0); HGB 13.2 gm/dL (13.0-17.5); Lymphocytes # (A) 1.5 k/uL (1.0-4.8); Lymphocytes % (A) 13 %; MCH 31.2 pg (25.0-35.0); MCHC 34.3 g/dL (31.0-37.0); MCV 91.1 fL (80.0-100.0); Mean Platelet Volume 7.9; Monocytes # (A) 0.8 k/uL (0-1.0); Monocytes % (A) 7 %; Neutrophils # (A) 8.7 k/uL (1.3-7.7); Neutrophils % (A) 78 %; Platelet Count 237 k/uL (150-450); RBC 4.24 m/uL (4.30-5.90); RDW 12.9 % (11.5-15.5); WBC 11.2 k/uL (3.8-10.6)
[2022-05-12 08:45] VITALS: BP 162/95; PULSE 86; RESP 18; TEMP 98.6
[2022-05-12] MEDS ORDERED: RIVAROXABAN 10 MG TAB PO SCH (09:00)
--- NOTE | 2022-05-12 09:56 | P.PN ---
Subjective Progress Note Date: 05/12/22 Principal diagnosis: Right hip osteoarthritis Patient seen at bedside this morning sitting up in chair with legs elevated. Patient says he has urinated several times since surgery yesterday. Patient says he has not had bowel movement, however, patient says he has been passing g as. Patient does have a walker/cane at home. Patient says he is looking forward to going home later today. Patient says he did work with physical therapy earlier this morning and walked down the hallway and up-and-down stairs. Patient says he is having a fair amount of hip pain currently. Pain medication has helped release some of the pain. Patient denies chest pain, fever, shortness breath, nausea, vomiting, change in vision, loss of bowel/bladder control. Objective - Vital Signs Vital signs: Vital Signs Temp 98.6 F 05/12/22 08:50 Pulse 86 05/12/22 08:50 Resp 18 05/12/22 08:50 BP 162/95 05/12/22 08:50 Pulse Ox 99 05/12/22 08:50 FiO2 Intake & Output 05/11/22 05/12/22 05/12/22 18:59 06:59 18:59 Intake Total 1231 1300 Output Total 50 Balance 1181 1300 Weight 98.5 kg Intake: IV 1051 Intake, IV Titration 1300 Amount Lactated Ringers 1,000 ml 1200 @ 0 mls/hr IV .[facility] Rx#:[id number] ceFAZolin 2 gm In Sodium 100 Chloride 0.9% 50 ml @ 100 mls/hr IVPB Q8H [facility] Rx#: [id number] Oral 180 Output: Estimated Blood Loss 50 Other: Voiding Method Toilet # Voids 2 4 - Exam Right hip: Incision is clean, dry, and intact. The exofin fusion tape is in good condition. There is minimal soft tissue swelling and ecchymosis surrounding the medial and lateral aspects of the incision. Calf is soft, no tenderness with p alpation. Plantar flexion, dorsiflexion, EHL, FHL are intact. Sensory exam to light touch throughout the extremity is intact, dorsal pedis pulses 2+. - Labs CBC & Chem 7: 05/12/22 05:40 Labs: Abnormal Lab Results - Last 24 Hours (Table) 05/12/22 Range/Units 05:40 WBC 11.2 H (3.8-10.6) k/uL RBC 4.24 L (4.30-5.90) m/uL Hct 38.6 L (39.0-53.0) % Neutrophils # 8.7 H (1.3-7.7) k/uL Assessment and Plan Assessment: 1. Right hip osteoarthritis - Postop day 1 status post right total hip arthroplasty Plan: 1. Right hip osteoarthritis - patient stable at bedside this morning. Patient did do well with physical therapy this morning. Discharge home today with health services. 2. Appreciate medical management 3. Pain management - Quitaque 7.5 mg/325 mg 4. DVT prophylaxis - Xarelto in hospital. Going home with eliquis 2.5 mg BID x 2 weeks 5. GI prophylaxis - senna 6. PT/OT - weightbearing as tolerated with walker 7. Encourage incentive spirometer use 8. Discharge planning - home with health services today. Time with Patient: Less than 30
--- NOTE | 2022-05-12 10:01 | P.DS ---
Providers Date of admission: 05/12/22 07:48 Expected date of discharge: 05/12/22 Attending physician: Raghu Zimmerman Consults: 05/11/22 13:46 Consult Physician Routine Consulting Provider: Aidee Castellanos Consult Reason/Comments: medical management s/p right total hip arthroplasty Do you want consulting provider notified?: Yes Primary care physician: Jonnie Jacobs Hospital Course: Date of admission: 05/11/2022 Date of discharge: 05/12/2022 Admission diagnosis: Right hip osteoarthritis Discharge diagnosis: Same Attending physician: Dr. Zimmerman Surgical procedures: Right total hip arthroplasty Brief history: Patient is a 57-year-old male with a history of progressive primary right hip osteoarthritis. At this point patient has failed conservative treatment measures and has opted to proceed with a elective right total hip arthroplasty. Hospital course: Details of patient's surgery can be found in operative report. Patient tolerated the procedure well and was subsequently transported to orthopedic floor. Patient's orthopeidc and medical care was provided daily. Patient had daily laboratory tests performed for evaluation of overall blood counts. Patient had daily physical therapy to include strengthening range of motion as well as education with walker ambulation. Patient was treated with Xarelto for their postoperative DVT prophylaxis during their inpatient stay. Patient was noted to have a relatively uneventful postoperative course. Patient reported satisfactory pain control with oral pain medications by postoperative day 1. Patient showed satisfactory progress with physical therapy. Patient moved steadily through the program and had no difficulty meeting the goals by postoperative day 1. Given patient's otherwise satisfactory course and having met physical therapy goals, plan is to discharge patient home with health services on postoperative day 1. Discharge condition/disposition: Patient will be discharged home with health ser vices in stable condition. Discharge medications: Instructions are given on resumption of patient's normal daily medications per primary care recommendation, in addition patient will be prescribed [place]; senna; Eliquis 2.5 mg BID x 2 weeks. Discharge instructions: 1. Wound care and infection precautions, keep incision dry and covered while showering, no lotions, creams, moisturizers. No soaking, tubs, pools, hottubs. Do not scrub over the incision. 2. Weight-bear as tolerated with walker / cane until follow-up. 3. Ice and elevate when necessary. Do not exceed 20 minutes per hour with ice pack. 4. Utilize compression sleeve until seen at first follow up appointment. 5. Visiting nursing care. 6. Home physical therapy . 7. Pain meds and anticoagulants per prescription. 8. Pain medication has potential to cause constipation. Increase oral fluid and fiber intake. Contact primary care provider if you have not had a bowel movement within 48 hours after discharge 9. No anti-inflammatory medication until discussed at first post operative visit, this including Motrin, Aleve, Mobic, Diclofenac. 10. Follow up in office at 2 weeks postop with Pako Johnson PA-C / Ozzy Torres PA-C 11. Follow up with your primary care doctor 7-10 days after discharge. 12. Contact [facility] with any questions, . Assessment: Right hip osteoarthritis Procedures: Right total hip arthroplasty Patient Condition at Discharge: Good Plan - Discharge Summary Discharge Rx Participant: Yes New Discharge Prescriptions: New Apixaban [Eliquis] 2.5 mg PO BID #60 tab Sennosides/Docusate Sodium [Senna Plus 8.6-50 mg Softgel] 1 each PO DAILY #20 cap HYDROcodone/APAP 7.5-325MG [[place] 7.5] 1 - 2 each PO Q6HR PRN #36 tab PRN Reason: Pain Continue Cetirizine HCl [Zyrtec] 10 mg PO DAILY #60 tab EPINEPHrine (Auto Inject) [Epipen] 0.3 mg IM ONCE PRN PRN Reason: Anaphylaxis Montelukast [Singulair] 10 mg PO DAILY #90 tab lisinopriL [Zestril] 10 mg PO DAILY HYDROcodone/APAP 5-325MG [[place] 5-325] 1 tab PO Q6HR PRN PRN Reason: Pain Omeprazole 20 mg PO DAILY Dicyclomine [Bentyl] 40 mg PO BID Discharge Medication List Cetirizine HCl [Zyrtec] 10 mg PO DAILY #60 tab 11/12/14 [Rx] EPINEPHrine (Auto Inject) [Epipen] 0.3 mg IM ONCE PRN 01/02/18 [History] Omeprazole 20 mg PO DAILY 05/08/20 [History] Montelukast [Singulair] 10 mg PO DAILY #90 tab 02/18/22 [Rx] Dicyclomine [Bentyl] 40 mg PO BID 05/07/22 [History] HYDROcodone/APAP 5-325MG [[place] 5-325] 1 tab PO Q6HR PRN 05/07/22 [History] lisinopriL [Zestril] 10 mg PO DAILY 05/07/22 [History] Apixaban [Eliquis] 2.5 mg PO BID #60 tab 05/12/22 [Rx] HYDROcodone/APAP 7.5-325MG [[place] 7.5] 1 - 2 each PO Q6HR PRN #36 tab 05/12/22 [Rx] Sennosides/Docusate Sodium [Senna Plus 8.6-50 mg Softgel] 1 each PO DAILY #20 cap 05/12/22 [Rx] Follow up Appointment(s)/Referral(s): Ozzy Torres PAC [PHYSICIAN SPECIMEN BOSS] - 2 Weeks Patient Instructions/Handouts: Anterior Hip Replacement (DC) Activity/Diet/Wound Care/Special Instructions: Orthopedic Discharge Instructions: 1. Wound care and infection precautions, keep incision dry and covered while showering, no lotions, creams, moisturizers. No soaking, pools, hot tubs. Do not scrub over incision. 2. Weight-bear [as tolerated] with walker / cane until follow-up. 3. Ice and elevate when necessary. Do not exceed 20 minutes per hour with ice pack. 4. Utilize compression sleeve until seen at first follow up appointment. 5. Pain meds and anticoagulants per prescription. 6. Pain medication has potential to cause constipation. Increase oral fluid and fiber intake. Contact primary care provider if you have not had a bowel movement within 48 hours after discharge. 7. No anti-inflammatory medication until discussed at first post operative visit, this including Motrin, Aleve, Mobic, Diclofenac. 8. Follow up in office at 2 weeks postop with Pako Johnson PA-C / Ozzy Torres PA-C 9. Follow up with your primary care doctor 7-10 days after discharge. 10. Contact [facility] with any questions, . Keep incision clean, dry, intact., While showering, cover fusion tape with Saran wrap. Keep fusion tape on until follow-up appointment in office in 2 weeks Discharge Disposition: HOME WITH HOME HEALTH SERVICES
--- NOTE | 2022-05-12 10:05 | P.PN ---
Subjective Progress Note Date: 05/12/22 No new complaints today. Patient's pain is well controlled, ambulating well with a walker. Gen: awake, alert HEENT: normocephalic, atraumatic, good hearing acuity, moist mucous membranes Resp: good air exchange, breathing comfortably with no accessory muscle use CVS: good distal perfusion x 4, GI: soft, NTTP, ND : no SPT, no CVAT, bobby catheter not present MSK: no pitting edema, no clubbing Neuro: non-focal, moving all extremities Psych: cooperative, euthymic mood Hospital course: 57-year-old man with medical history of hypertension, seasonal ALLERGIES presented for elective hip replacement. Medicine was consulted by orthopedic Surgery service for medical management. Upon my evaluation, patient is afebrile, 125/81, heart rate 59, 98% on room air. No labs to review. Postoperative hip x-ray shows post surgical changes from right hip total arthroplasty with intact hardware with appropriate alignment. By day 2 of hospitalization, patient was medically cleared for discharge. Assessment: Hypertension Seasonal ALLERGIES Status post right hip arthroplasty Plan: Today, patient is afebrile, 162/95, heart rate 86, 99% on room air CBC shows mild leukocytosis to 11.2 Patient is medically cleared for discharge Continue home Prilosec Continue home cetirizine, montelukast Continue home lisinopril Continue home dicyclomine Patient is full code Objective - Vital Signs Vital signs: Vital Signs Temp 98.6 F 05/12/22 08:50 Pulse 86 05/12/22 08:50 Resp 18 05/12/22 08:50 BP 162/95 05/12/22 08:50 Pulse Ox 99 05/12/22 08:50 FiO2 Intake & Output 05/11/22 05/12/22 05/12/22 18:59 06:59 18:59 Intake Total 1231 1300 Output Total 50 Balance 1181 1300 Weight 98.5 kg Intake: IV 1051 Intake, IV Titration 1300 Amount Lactated Ringers 1,000 ml 1200 @ 0 mls/hr IV .[facility] Rx#:[id number] ceFAZolin 2 gm In Sodium 100 Chloride 0.9% 50 ml @ 100 mls/hr IVPB Q8H [facility] Rx#: [id number] Oral 180 Output: Estimated Blood Loss 50 Other: Voiding Method Toilet # Voids 2 4 - Labs CBC & Chem 7: 05/12/22 05:40 Labs: Abnormal Lab Results - Last 24 Hours (Table) 05/12/22 Range/Units 05:40 WBC 11.2 H (3.8-10.6) k/uL RBC 4.24 L (4.30-5.90) m/uL Hct 38.6 L (39.0-53.0) % Neutrophils # 8.7 H (1.3-7.7) k/uL
== END 2022-05-12 15:20 | disposition home health service (06) ==
LOC: OR 09:41 → 4SSUR 13:40 → OR 05-12 07:23 → 4SSUR 05-12 07:48
PROVIDERS: ADMIT Orthopaedic Surgery; ATTEND Orthopaedic Surgery
DX: M16.11 Unilateral primary osteoarthritis, right hip (principal); I10 Essential (primary) hypertension; J44.9 Chronic obstructive pulmonary disease, unspecified; K21.9 Gastro-esophageal reflux disease without esophagitis; J30.2 Other seasonal allergic rhinitis; Z79.899 Other long term (current) drug therapy; Z91.09 Other allergy status, other than to drugs and biological substances; Z90.49 Acquired absence of other specified parts of digestive tract; Z96.651 Presence of right artificial knee joint; Z96.642 Presence of left artificial hip joint; Z97.2 Presence of dental prosthetic device (complete) (partial); Z87.891 Personal history of nicotine dependence; Z98.890 Other specified postprocedural states; Z80.3 Family history of malignant neoplasm of breast; Z82.3 Family history of stroke
CPT/HCPCS: 97161; 97165; 64447; 76942; 86900; 86901; 85025; 86850; 73501; 27130; G0378; C1776; J2250; J1100; J0690 ×3; J2405; J3010; J1170; J2795; J2704; 88305; 88311

== ENCOUNTER → 2022-06-28 | Outpatient (CLI) | payer MEDICAID ==
[2022-06-28 15:36] LABS: Basophils # (A) 0.06 X 10*3/uL (0.00-0.10); Eosinophils % (A) 6.6 %; HCT 40.7 % (39.6-50.0); HGB 12.9 g/dL (13.0-17.0); Immature Grans, Automated 0.2 %; Lymphocytes # (A) 2.48 X 10*3/uL (0.90-5.00); Lymphocytes % (A) 40.7 %; MCH 30.8 pg (27.0-32.0); MCHC 31.7 g/dL (32.0-37.0); MCV 97.1 fL (80.0-97.0); Mean Platelet Volume 9.8 fL (9.5-12.2); Monocytes # (A) 0.65 X 10*3/uL (0.20-1.00); Monocytes % (A) 10.7 %; NRBC Per 100 WBC 0 /100 WBCS (0.0-0.0); Neutrophils # (A) 2.49 X 10*3/uL (1.80-7.70); Neutrophils % (A) 40.8 %; Platelet Count 280 X 10*3/uL (140-440); RBC 4.19 X 10*6/uL (4.40-5.60); RDW 12.9 % (11.5-14.5); WBC 6.09 X 10*3/uL (4.50-10.00)
[2022-06-28 15:49] LABS: ALT 21 U/L (10-49); AST 20 U/L (14-35); African American GFR (CKD) 115.2 (60.0-200.0); Albumin 4.4 g/dL (3.8-4.9); Albumin/Globulin Ratio 2.07 (1.60-3.17); Alkaline Phosphatase 77 U/L (41-126); Amylase 46 U/L (23-121); BUN/Creat Ratio 15.35 Ratio (12.00-20.00); Blood Urea Nitrogen 12.2 mg/dL (9.0-27.0); C Reactive Protein <0.30 mg/dL (0.00-0.80); Calcium 9.3 mg/dL (8.7-10.3); Chloride 104 mmol/L (96-109); GGT 30 U/L (0-73); Globulin 2.1 g/dL (1.6-3.3); Glucose 134 mg/dL (70-110); Lipase 38 U/L (14-60); Non-African American GFR(CKD) 99.4 (60.0-200.0); Potassium 4.4 mmol/L (3.5-5.5); Sodium 141 mmol/L (135-145); Total Protein 6.5 g/dL (6.2-8.2)
[2022-06-28 16:25] LABS: Erythrocyte Sedimentation Rate 8 mm/Hr (0-20)
== END | disposition home or self-care (01) ==
LOC: LABWHC1 07:24
PROVIDERS: ATTEND Family Medicine
DX: R10.11 Right upper quadrant pain (principal)
CPT/HCPCS: 36415; 80053; 82150; 82977; 83690; 85025; 85652; 86140

== ENCOUNTER → 2023-02-18 | Outpatient (CLI) | payer MEDICAID ==
--- NOTE | 2023-02-20 16:21 | MR ---
EXAMINATION TYPE: MR lumbar spine wo con DATE OF EXAM: 02/18/2023 COMPARISON: 03/02/2027 HISTORY: Low back pain into left leg CONTRAST: 0 mL intravenous Gadavist. TECHNIQUE: Multiplanar, multisequence images of the lumbar spine were acquired. FINDINGS: Cord terminates at approximately L2. Disc heights are preserved. Mild disc desiccation is present L2-3, L4-5, L5-S1. Body alignment is preserved. The body heights are preserved. L5-S1: No significant disc bulge or disc herniation. No spinal canal stenosis. No foraminal stenosi s. L4-L5: Broad-based disc bulge has anterior thecal sac flattening. No AP spinal canal stenosis. Neural foramen are patent. No spinal canal stenosis. No foraminal stenosis. L3-L4: No significant disc bulge or disc herniation. No spinal canal stenosis. No foraminal stenosi s. L2-L3: No significant disc bulge or disc herniation. No spinal canal stenosis. No foraminal stenosi s. L1-L2: No significant disc bulge or disc herniation. No spinal canal stenosis. No foraminal stenosi s. T12-L1: No significant disc bulge or disc herniation. No spinal canal stenosis. No foraminal stenos is. IMPRESSION: 1. Minimal disc bulge at L4-5 without spinal canal stenosis. Some mild flattening of the anterior the julio sac is present. 2. Minimal disc desiccation without loss of disc height discussed above
== END | disposition home or self-care (01) ==
LOC: RADMRIMAIN 12:38
PROVIDERS: ATTEND Orthopaedic Surgery
DX: M51.26 Other intervertebral disc displacement, lumbar region (principal); M51.36 Other intervertebral disc degeneration, lumbar region
CPT/HCPCS: 72148

== ENCOUNTER → 2023-05-11 | Outpatient (CLI) | payer MEDICAID ==
[2023-05-11 10:36] VITALS: BP 144/89; PULSE 75; RESP 15; TEMP 98.3
--- NOTE | 2023-05-11 14:25 | P.PAINPG ---
PQRS Measure Charge Sheet Comment: HISTORY OF PRESENT ILLNESS: A 58 yr old male as a referral from Dr Smith presents today w severe and chronic LBP x 2 yrs secondary to DDD, spondylosis and facet arthropathy without myelopathy for evaluation. Pt states pain level is provoked at 9 /10 in intensity, constant, localized in the lower lumbar spine, predominantly axial, dull/ achy in character w occasional shooting pain towards the BLEs. Pain is provoked by bending. Pain is alleviated by PT x 3 wks which he is currently in, heat, ice, medications (Ibu), repositioning and rest. Oswestry axial pain score at 29. PMH: OA, COPD, GERD, HTN PSH: Cholecystectomy, Joint Replacement, BL Knee Arthroscopy, Total R Knee Surgery, L Shoulder Arthroscopy, Colonoscopy, Lower Dental Implants, BL Hip Replacement SH: 38 pack/ yr tobacco user, Occasional ETOH use, CBD Oil/ Cannabis use FH: Mo- Breast CA. Fa- CVA All: See list Meds: See list REVIEW OF ORGAN SYSTEMS: CONSTITUTIONAL: No fevers or chills. No recent weight loss. NEUROLOGICAL: + numbness and tingling along the distal extremities. No seizure disorders or headaches. MUSCULOSKELETAL: + pain PSYCHIATRIC: Denies current depression or suicidal thoughts. Physical Examinations : Constitutional : Cooperative , not in acute distress . Neurologic : Cranial nerve II to XII intact. No focal neurological deficits. Psychiatric : alert & oriented x 3. Matching mood & appropriate affect. Judgment & insight intact. Musculoskeletal : Cervical Spine Motor strength in the deltoid and biceps: Normal right side. Normal Left side Motor strength biceps and the wrist extensors: Normal right side . Normal left side Motor strength in the triceps muscle: Normal right side. Normal left side Deep tendon reflexes: Normal at the biceps. Normal at Brachioradialis. Normal at triceps Vertebral body tenderness to deep palpation over Cervical facet loading test: positive bilaterally Spurling test: positive bilaterally Neck distraction test: positive bilaterally Joe sign: positive bilaterally Lumbar spine Motor strength lower extremities ,thigh and legs 5/5 Right side , 5/5 Left side Deep tendon reflexes : Normal Knee Jerk. Normal Ankle Jerk Vertebral body tenderness over Kohli Test positive Lumbar facet Loading Test: positive Right / positive Left L4-L5, L5-S1 Range of motion of the lumbar spine Flexion 30 degrees, extension 10 degrees Straight Leg Raise test: Left/ Right positive at degree Joanna test: positive right / positive left. Severe tenderness over the Sacroiliac joint on the Right / Left sides Gaenslen test: positive bilaterally Seated flexion test: positive bilaterally. Sacral spine : Severe tenderness over the Sacroiliac joint: right side / left side Range of motion: Flexion of the lumbar spine <60 degrees Range of motion: Extension of the lumbar spine <20 degrees Gaenslen's Test positive Joanna test: positive right side / left side Thigh Thrust Test Sacral Thrust Test Imaging: MRI noncontrast of the lumbar spine from 02/18/2023 reviewed Assessment/ Plan : Lumbar DDD Recommendation of BL MBB L4-L5, L5-S1 #1. May need a series of injections, up until RFA, for optimal pain relief. Risks, benefits of procedure discussed and patient verbalized understanding. Admits to anti- coagulant use or medical history of diabetes. Protocol for discontinuation/ continuation of medications levy procedure discussed. Minimal anesthesia provided, if clinically indicated, consisting of Versed and Fentanyl. All questions answered. I have spent greater than 30 minutes on patient care today. Dr Lara was available by phone for the evaluation of this patient. The time was used to review the medical records including relevant urine studies and Prescription history (MAPs), review of the available imaging, evaluation and examination of the patient, coordination of care with the medical staff and if applicable referring physicians, as well as creation of the medical record PQRS Narrative: Smoking Status Former smoker Home Medications: Ambulatory Orders Cetirizine HCl [Zyrtec] 10 mg PO DAILY #60 tab 11/12/14 EPINEPHrine (Auto Inject) [Epipen] 0.3 mg IM ONCE PRN 01/02/18 Omeprazole 20 mg PO DAILY 05/08/20 Montelukast [Singulair] 10 mg PO DAILY #90 tab 02/18/22 Dicyclomine [Bentyl] 40 mg PO BID 05/07/22 HYDROcodone/APAP 5-325MG [[place] 5-325] 1 tab PO Q6HR PRN 05/07/22 lisinopriL [Zestril] 10 mg PO DAILY 05/07/22 Apixaban [Eliquis] 2.5 mg PO BID #60 tab 05/12/22 HYDROcodone/APAP 7.5-325MG [[place] 7.5] 1 - 2 each PO Q6HR PRN #36 tab 05/12/22 Sennosides/Docusate Sodium [Senna Plus 8.6-50 mg Softgel] 1 each PO DAILY #20 cap 05/12/22 Controlled Substance Measures - Controlled Substance Measures Is patient prescribed a controlled substance at discharge?: No
== END ==
LOC: PNWHC3 09:29
PROVIDERS: ATTEND Specialist
DX: M51.37 Other intervertebral disc degeneration, lumbosacral region (principal); M19.90 Unspecified osteoarthritis, unspecified site; M47.817 Spondylosis without myelopathy or radiculopathy, lumbosacral region; G89.29 Other chronic pain; T78.40XA Allergy, unspecified, initial encounter; Z87.891 Personal history of nicotine dependence; Z88.8 Allergy status to other drugs, medicaments and biological substances
CPT/HCPCS: 99211

== ENCOUNTER 2023-05-24 07:50 | Day surgery (SDC) | payer MEDICAID ==
[2023-05-23 09:06] VITALS: BMI 29.1
[2023-05-24 08:43] VITALS: RESP 16; TEMP 98.7
[2023-05-24] MEDS: LACTATED RINGERS 1,000 ML IV SCH (09:06)
[2023-05-24] MEDS ORDERED: ROPIVACAINE 5MG/ML 20ML VIAL ONE (09:13)
[2023-05-24] MEDS ORDERED: fentaNYL (PF) 50 MCG/ML 2 ML AMP ONE (09:13)
[2023-05-24] MEDS ORDERED: MIDAZOLAM 2 MG/2 ML VIAL ONE (09:13)
--- NOTE | 2023-05-24 09:24 | P.PCN ---
Date of Procedure: 05/24/23 Procedure(s) Performed: PREOPERATIVE DIAGNOSIS : 1- Lumbar spondylosis with Facet Arthropathy with out myelopathy . 2- Lumber degenerative disc disease POSTOPERATIVE DIAGNOSIS: 1- Lumbar spondylosis with Facet Arthropathy without myelopathy . 2- Lumber degenerative disc disease PROCEDURE: Diagnostic bilateral L3 , L4 , and L5 medial branch block under fluoroscopy guidance(fluoroscopy images available in the radiology Department ) ( To target the facet joint between Bilateral L4-5 , and L5- S1 )#1st ANESTHESIA: moderate sedation with intravenous Versed 1 mg and Fentanyl 50 mcg. (Sedation was started at 09:13, end at 09:21 ) EBL: Minimal COMPLICATION: None PROCEDURE INDICATION: Chronic low back pain secondary to Facet arthropathy unresponsive to conservative treatment. PROCEDURE DESCRIPTION: the patient was seen and identified in the preop holding area , risks and benefits and possible complications of the procedure and alternative were discussed with the patient, and the patient agreed to proceed with the procedure and signed the consent and vital signs monitored during the procedure and fluoroscopy was used to maximize the benefit and accuracy of the needle placement, and sedation was given to decrease patient anxiety, patient was taken to the procedure room and placed in prone position vital signs monitored in the back prepped with chlorhexidine X3 then under strict sterile technique using a right oblique fluoroscopy ,the junction of the transverse process and the superior articulating process of the right L3 , L4 , and L5 vertebra which corresponding to the fluoroscopy image of the eye of the Tan dog on the block side for the medial branches and subsequently , after local infiltration of skin and subcu tissuies with Ropivacaine 0.5 % , one mL at each level ,then 22-gauge Quincke-type needles , 3 needle was used , each one of them placed at the junction of the base of the transverse process and the superior articular process at the appropriate level, and the needle was advanced until the periosteum contacted, needle placement confirmed with AP oblique and lateral view and after appropriate needle placement confirmed, and after negative aspiration for heme and CSF and there was no paresthesia 1-1/2 mL of Ropivacaine 0.5% , then half mL injected at each level after negative aspiration the needle subsequently removed and the same procedure repeated for the left side at left side at L3 , L4 and L5 levels. At the end of the procedure and the needles removed and a bandage applied after the skin was cleaned the cleaning solution patient taken to recovery room in stable condition and monitors in the recovery room for 20-30 minutes and discharged home in stable condition after discharge criteria met and patient will follow up with the pain clinic in 2-4 weeks
[2023-05-24] MEDS: IV FLUID CONTINUATION 1,000 ML IV ONE (09:28)
[2023-05-24 10:10] VITALS: BP 144/86; PULSE 56
--- NOTE | 2023-05-24 10:10 | FL ---
EXAMINATION TYPE: FL guided pain mgmt statistic Intraoperative/procedural fluoroscopic services were provided. Total fluoroscopy time is 21.9 seconds with a total of 5 submitted images to PACS. Please s ee the operative/procedural note for further details. DAP: [id number] mGym2
== END 2023-05-24 09:54 | disposition home or self-care (01) ==
LOC: ORPAIN 07:50
PROVIDERS: ATTEND Specialist
DX: M51.36 Other intervertebral disc degeneration, lumbar region (principal); M47.816 Spondylosis without myelopathy or radiculopathy, lumbar region; G89.29 Other chronic pain; Z91.09 Other allergy status, other than to drugs and biological substances
CPT/HCPCS: 64493; 64494 ×2; J2250; J3010; J2795

== ENCOUNTER → 2023-06-09 | Outpatient (CLI) | payer MEDICAID ==
--- NOTE | 2023-06-09 11:33 | P.PAINPG ---
Subjective Progress Note Date: 06/09/23 Principal diagnosis: lumbar back pain Mr. Noland is a 58 -year-old pleasant male came to the [facility] pain clinic for postprocedure evaluation after bilateral lumbar L4-L5, L5-S1 medial branch block #1. he had 100% pain relief for 1 day after the procedure, his pain gradually started coming back to the baseline. Patient describes pain is aching, throbbing, constant type of pain. his pain is not radiating to his lower extremities.. Patient rated pain levels are3-4out of 10 in severity. With the help of medications pain levels are3-4out of 10 in severity. Activities making pain worse. Medications, resting, interventional pain procedure helping in relieving patient's pain. Patient pain some days better than others. Overall activities decreased secondary to pain. Because of the pain sometimes patient is feeling lack of sleep, interest, and energy. Denied any side effects with the medications. Denied any bowel or bladder problems at this time. patient is not using any walking aids for walking support. Patient denies any suicidal or homicidal ideations intent or plan. Patient denies any auditory or visual hallucinations. Patient denied any red flag symptoms related to pain. Objective - Exam General: Well-developed, well-nourished, no acute distress HEENT: Normocephalic, and atraumatic Neck: Supple, no neck swelling Psychiatric: Appropriate mood, and affect DRAWING IN HAND: No focal neurological deficits Musculoskeletal: Upper extremity: Normal strength, and range of motion. Sensation grossly intact Lower extremity: Normal strength, and normal range of motion Lumbar spine: Paravertebral tenderness: negative Lumbar facet load test : positive Sacroiliac joint tenderness: negative - Constitutional Constitutional Comment(s): 13 point review of symptoms negative except as mentioned in the history of present illness Assessment and Plan Assessment: lumbar spondylosis without myelopathy Plan: #1 Diagnoses, prognosis, and multiple treatment options including but not limited to physical therapy, interventional therapy, adjunct medication therapy, narcotic medication, and surgical options were discussed with the patient. And all questions were answered to the patient's satisfaction. #2 treatment plan agreement : Patient was thoroughly discussed regarding the treatment options, alternatives, and importance of exercises as tolerated. Patient clearly understood. #3 Patient was counseled on importance of regular exercise. Including miracle chi, aerobic exercises as tolerated. Which helps for chronic pain, and overall well- being. #4 investigations: MAPS- reviewed , urine drug test- none #5 diagnostic tests: none #6 consultation :none # 7 interventional procedures:bilateral lumbar L4-L5, and L5-S1 medial branch block #2 . Procedure, complications, alternatives discussed with the patient. #8 medications none from the pain clinic. #9 morphine milligrams equivalents dose ( MME) per day:none # 10 TENS unit's, and percussion massage device #11 disposition: scheduled to follow up with pain clinic in8 weeks duration. Time with Patient: Less than 30 PQRS Measure Charge Sheet Measure #130: Documentation of Current Meds in Medical Chart: Patient's medications documented in chart Measure #226: Tobacco Use: Screen & Cessation Intervention: Pt not a tobacco user Measure #111: Pneumonia Vaccination: Pneumococcal vaccine administered or previously received Measure #47: Advance Care Plan: Advance care planning discussed & documented, pt chose/unable to give Measure #412: Opioid Treatment Agreement: No documentation of signed opioid treatment agreement Measure #408: Opioid Therapy Follow-up Evaluation: Patient had NO f/u eval minimum every 3 months during opioid therapy Measure #317: Preventitive Care & Scrn High Bld Press & F/U: Pre-hypertensive or hypertensive BP documented, pt will f/u with PCP Measure #128: Body Mass Index (BMI) Screening & Follow-up: BMI documented ABOVE normal parameters - f/u documented Measure #131: Pain Assessment & Follow-up: Pain positive & plan documented Measure #431: Unhealthy Alcohol Use Preventative Care & Scrn: Patient not identified as an unhealthy alcohol user PQRS Narrative: Smoking Status Former smoker Hx Alcohol Use (MH) Yes Home Medications: Ambulatory Orders Cetirizine HCl [Zyrtec] 10 mg PO DAILY #60 tab 11/12/14 Omeprazole 20 mg PO DAILY 05/08/20 Montelukast [Singulair] 10 mg PO DAILY #90 tab 02/18/22 Controlled Substance Measures - Controlled Substance Measures Is patient prescribed a controlled substance at discharge?: No
[2023-06-09 12:25] VITALS: BP 117/78; PULSE 63; RESP 16
== END ==
LOC: PNWHC3 11:09
DX: M47.816 Spondylosis without myelopathy or radiculopathy, lumbar region (principal); G89.29 Other chronic pain; M54.50 Low back pain, unspecified; Z71.82 Exercise counseling; Z87.891 Personal history of nicotine dependence; Z88.8 Allergy status to other drugs, medicaments and biological substances
CPT/HCPCS: 99211

== ENCOUNTER → 2024-04-12 | Outpatient (CLI) | payer MEDICAID ==
[2024-04-12 10:47] LABS: Basophils # (A) 0.07 X 10*3/uL (0.00-0.10); Basophils % (A) 1.1 %; Eosinophils # (A) 0.47 X 10*3/uL (0.04-0.35); Eosinophils % (A) 7.5 %; HCT 43.5 % (39.6-50.0); HGB 15.2 g/dL (13.0-17.0); Lymphocytes # (A) 2.65 X 10*3/uL (0.90-5.00); Lymphocytes % (A) 42.1 %; MCH 31.3 pg (27.0-32.0); MCHC 34.9 g/dL (32.0-37.0); MCV 89.7 FL (80.0-97.0); Mean Platelet Volume 9.9 FL (9.5-12.2); Monocytes # (A) 0.72 X 10*3/uL (0.20-1.00); Monocytes % (A) 11.4 %; NRBC Per 100 WBC 0 X 10*3/uL (0.00-0.01); Neutrophils # (A) 2.37 X 10*3/uL (1.80-7.70); Neutrophils % (A) 37.6 %; Platelet Count 247 X 10*3/uL (140-440); RBC 4.85 X 10*6/uL (4.40-5.60); RDW 12.2 % (11.5-14.5)
[2024-04-12 11:05] LABS: ALT 19 U/L (10-49); AST 22 U/L (14-35); Albumin 4.6 g/dL (3.8-4.9); Albumin/Globulin Ratio 1.92 Ratio (1.60-3.17); Alkaline Phosphatase 57 U/L (41-126); BUN/Creat Ratio 18.89 Ratio (12.00-20.00); Carbon Dioxide 28.1 mmol/L (21.6-31.8); Chloride 101 mmol/L (96-109); Chol/HDL Ratio 2.95 Ratio; Globulin 2.4 g/dL (1.6-3.3); Glucose 109 mg/dL (70-110); LDL Cholesterol,Calculated 121.2 mg/dL (0.0-131.0); Potassium 4.2 mmol/L (3.5-5.5); Prostate Specific Antigen 3.23 ng/mL (0.000-3.500); Sodium 141 mmol/L (135-145); T4, Free (Free Thyroxine) 1.25 ng/dL (0.80-1.80); Total Bilirubin 1.1 mg/dL (0.3-1.2)
== END | disposition home or self-care (01) ==
LOC: LABWHC1 07:08
PROVIDERS: ATTEND Nurse Practitioner Family
DX: Z00.00 Encounter for general adult medical examination without abnormal findings (principal); N40.1 Benign prostatic hyperplasia with lower urinary tract symptoms; E78.2 Mixed hyperlipidemia; E07.9 Disorder of thyroid, unspecified; R73.9 Hyperglycemia, unspecified
CPT/HCPCS: 36415; 80053; 80061; 83036; 84153; 84439; 84443; 85025

== ENCOUNTER → 2024-05-09 | Outpatient (CLI) | payer MEDICAID ==
--- NOTE | 2024-05-09 11:22 | CTL ---
EXAMINATION TYPE: CT Low Dose Lung DATE OF EXAM: 05/09/2024 11:11 AM COMPARISON: 02/26/2020 CLINICAL INDICATION: Male, 59 years old with history of F17.210 nicotine dependence; Nicotine Depende nce, history of tobacco use. TECHNIQUE: Multiple axial non-contrast scans were obtained from approximately the lung apices through the upper abdomen. Coronal and sagittal reformatted images were obtained. Low dose technique was uti lized. MIP were created on a separate workstation and submitted for review. CT DLP: 123.50 mGycm, Automated exposure control for dose reduction was used. CT Contrast: Contrast used: None Oral contrast used: None FINDINGS: Lack of intravenous contrast and low dose technique limits the evaluation of the vascular and soft ti ssue structures. LUNGS: No evidence of pulmonary fibrosis. No evidence of focal consolidation, pneumothorax or pleural effusion. Centrilobular emphysema changes. Nodules: RUL: None. RML: None. RLL: None. ALISTAIR: None. LLL: None. AIRWAY: Patent and unremarkable. HEART: Size within normal limits. No significant coronary artery calcifications. MEDIASTINUM: No gross evidence of adenopathy. VASCULATURE: No aortic aneurysm. MUSCULOSKELETAL: Moderate disc degeneration changes are present throughout the thoracolumbar spine. SOFT TISSUES/LYMPH NODES: Unremarkable. LOWER NECK: No significant findings. UPPER ABDOMEN: Right upper quadrant cholecystectomy clips. IMPRESSION: 1. No clinically significant pulmonary nodules. 2. Mild emphysema. CT LUNG RAD AND CT CHEST RECOMMENDATION: Lung-Rad 1 Negative: Continue annual screening with LDCT in 12 months. S Modifier (other clinically significant findings): None Recommend smoking cessation (if current smoker), or continuation of smoking cessation (if prior smoke r). Annual screening for lung cancer with low-dose computed tomography is recommended in adults ages 55 to 77 years who have a 30 pack-year smoking history and currently smoke or have quit within the pa st 15 years. Screening should be discontinued once a person has not smoked for 15 years or develops a health problem that substantially limits life expectancy or the ability or willingness to have curat matheus lung surgery. Lung rads 2021 [email or web address] [facility], , 05/09/2024 11:20 AM
== END | disposition home or self-care (01) ==
LOC: RADCTMAIN 10:19
PROVIDERS: ATTEND Internal Medicine Geriatric Medicine
DX: Z12.2 Encounter for screening for malignant neoplasm of respiratory organs (principal); J43.2 Centrilobular emphysema; Z87.891 Personal history of nicotine dependence
CPT/HCPCS: 71271

== ENCOUNTER → 2024-06-05 | Outpatient (CLI) | payer MEDICAID ==
[2024-06-05 13:44] VITALS: BP 108/69; PULSE 72; RESP 16; TEMP 98
--- NOTE | 2024-06-05 14:07 | P.SLEEP ---
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 The patient has been encountering some headaches more so in the mornings and during her recent evaluation with his primary care, it was suggested that him coming into the sleep center to have a sleep apnea evaluation. He has history of loud snoring. Nevertheless, he denies having any sleep fragmentation, no witnessed apneas, no excessive tiredness or fatigue or sleepiness during the day. He is able to function well at work and he denies having any recent weight gain. He goes to bed at 11 PM wakes up 6 AM in the morning and on weekends he sleeps between 11 PM and 9 AM. He is averaging around 6 to 7 hours of sleep during weekdays. He sleeps on his back and he also assumes different body positions. Does not take any naps during the day. He wakes up few times in middle of the night and at least wants to use the bathroom. He has occasional dreams. No nightmares. No sleep paralysis. No obvious rashes. No cataplexy. No sleepwalking or sleep talking. No anxiety or palpitations or panic attacks. No nocturnal chest pain or heartburn. He has a dry mouth occasionally in the morning. No issues with memory or concentration. No other major cardiovascular comorbidities. No history of any motor vehicle accidents because of feeling drowsy or sleepy. Review of Systems Constitutional: Reports as per HPI Eyes: denies as per HPI, denies blurred vision, denies bulging eye, denies decreased vision, denies diplopia, denies discharge, denies dry eye, denies i rritation, denies itching, denies pain, denies photophobia, denies loss of peripheral vision, denies loss of vision, denies tunnel vision/blind spots Ears: deny: decreased hearing, ear discharge, earache, tinnitus Ears, nose, mouth and throat: Reports as per HPI Breasts: absent: as per HPI, gynecomastia Cardiovascular: Reports as per HPI (Today) Respiratory: Reports as per HPI, Reports snoring Gastrointestinal: Reports as per HPI Genitourinary: Reports as per HPI Musculoskeletal: Reports as per HPI Musculoskeletal: absent: ankle pain, ankle stiffness, ankle swelling, as per HPI, elbow pain, elbow stiffness, elbow swelling, foot pain, foot stiffness, foot swelling, hand pain, hand stiffness, hand swelling, hip pain, hip stiffness, hip swelling, knee pain, knee stiffness, knee swelling, shoulder pain, shoulder stiffness, shoulder swelling, wrist pain, wrist stiffness, wrist swelling Integumentary: Reports as per HPI Neurological: Reports as per HPI (Morning headaches) Psychiatric: Reports as per HPI Endocrine: Reports as per HPI Hematologic/Lymphatic: Reports as per HPI Allergic/Immunologic: Reports as per HPI Past Medical History Past Medical History: COPD, GERD/Reflux, Hypertension, Osteoarthritis (OA) Additional Past Medical History / Comment(s): Hx allergic reaction- unknown cause- carries Epi pen., loose stools since gallbladder removed. History of Any Multi-Drug Resistant Organisms: None Reported Past Surgical History: Cholecystectomy, Joint Replacement, Orthopedic Surgery Additional Past Surgical History / Comment(s): sridhar knee arthroscopy(rt x 2), Total Right Knee, Left shoulder, COLONOSCOPY, 2 LOWER DENTAL IMPLANTS. SRIDHAR Hips Past Anesthesia/Blood Transfusion Reactions: No Reported Reaction Smoking Status: Former smoker - Past Family History Mother Family Medical History: Cancer Additional Family Medical History / Comment(s): breast cancer Father Family Medical History: CVA/TIA Medications and Allergies Home Medications Medication Instructions Recorded Confirmed Type Cetirizine HCl [Zyrtec] 10 mg PO DAILY #60 tab 11/12/14 06/05/24 Rx Omeprazole 20 mg PO DAILY 05/08/20 06/05/24 History Montelukast [Singulair] 10 mg PO DAILY #90 tab 02/18/22 06/05/24 Rx hydroCHLOROthiazide 12.5 mg PO DAILY 06/05/24 06/05/24 History Allergies Allergy/AdvReac Type Severity Reaction Status Date / Time UNKNOWN ALLERGIC REACTION Allergy Severe Difficulty Uncoded 05/24/23 08:17 Swallowing,Swelling of Lip-has epipen Physical Exam Vitals: Vital Signs Temp Pulse Resp BP Pulse Ox 06/05/24 13:43 98 F 72 16 108/69 97 Intake and Output 06/04/24 06/05/24 06/05/24 22:59 06:59 14:59 Other: Weight 95.708 kg The patient appeared well nourished and normally developed. Vital signs as documented. Patient has a body mass index of 29.7 Head exam is unremarkable. No scleral icterus or corneal arcus noted. Neck is without jugular venous distension, thyromegaly, or carotid bruits. Carotid upstrokes are brisk bilaterally. Patient has a Mallampati class 2 with tonsillar enlargement. No overbite. Lungs are clear to auscultation and percussion. Cardiac exam reveals the PMI to be normally sized and situated. Rhythm is regular. First and second heart sounds normal. No murmurs, rubs or gallops. Abdominal exam reveals normal bowel sounds, no masses, no organomegaly and no aortic enlargement. Extremities are nonedematous and both femoral and pedal pulses are normal. Examination of the skin revealed no evidence of significant rashes, suspicious appearing nevi or other concerning lesions. Neurologically, the patient is awake and alert and the patient does not have any focal neurological deficit. Cranial nerves are essentially intact. Assessment and Plan Plan: Chronic loud snoring. The patient has Mallampati class II with bilateral tonsillar enlargement. No overbite. No witnessed apneas. No sleep fragmentation. No chronic hypersomnia or sleepiness. [place] score is at 9. Headaches, including morning headaches, under investigation. Hypertension Osteoarthritis COPD the patient is a former smoker. Plan Overall clinical suspicion for obstructive sleep apnea is low. No significant sleep fragmentation with chronic hypersomnia or sleepiness. Patient has snoring with bilateral tonsillar enlargement and Mallampati class II and is experiencing morning headaches. Will do a home sleep study to screen this patient for obstructive sleep apnea and treat accordingly. Maintain regular sleep schedule and the patient already has good sleep hygiene measures. Avoid alcohol drinking at least 3 hours prior to going to bed as the patient drinks beer specially on weekends. Rest of the comorbidities are all inactive and stable. No cardiovascular complications or comorbidities. Will make further recommendations based on the results of the home sleep study. Will continue to follow. Sleep Note - Sleep Data ESS Total: 9 - Sleep Note Sleep Note: Temperature: 98 F Pulse Rate: 72 Respiratory Rate: 16 Blood Pressure: 108/69 SpO2: 97 Height: 5 ft 10.7 in Weight: 95.708 kg BMI: Neck Circumference: 17
== END ==
LOC: 3 N SLEEP 13:11
PROVIDERS: ATTEND Internal Medicine Critical Care Medicine
DX: R06.83 Snoring (principal); J35.01 Chronic tonsillitis; R51.9 Headache, unspecified; I10 Essential (primary) hypertension; M19.90 Unspecified osteoarthritis, unspecified site; J44.9 Chronic obstructive pulmonary disease, unspecified; Z87.891 Personal history of nicotine dependence; Z88.9 Allergy status to unspecified drugs, medicaments and biological substances
CPT/HCPCS: 99211

== ENCOUNTER → 2024-06-20 | Outpatient (CLI) | payer MEDICAID ==
--- NOTE | 2024-06-24 20:46 | P.PCN ---
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 The patient has been encountering some headaches more so in the mornings and during her recent evaluation with his primary care, it was suggested that him coming into the sleep center to have a sleep apnea evaluation. He has history of loud snoring. Nevertheless, he denies having any sleep fragmentation, no witnessed apneas, no excessive tiredness or fatigue or sleepiness during the day. He is able to function well at work and he denies having any recent weight gain. He goes to bed at 11 PM wakes up 6 AM in the morning and on weekends he sleeps between 11 PM and 9 AM. He is averaging around 6 to 7 hours of sleep during weekdays. He sleeps on his back and he also assumes different body positions. Does not take any naps during the day. He wakes up few times in middle of the night and at least wants to use the bathroom. He has occasional dreams. No nightmares. No sleep paralysis. No obvious rashes. No cataplexy. No sleepwalking or sleep talking. No anxiety or palpitations or panic attacks. No nocturnal chest pain or heartburn. He has a dry mouth occasionally in the morning. No issues with memory or concentration. No other major cardiovascular comorbidities. No history of any motor vehicle accidents because of feeling drowsy or sleepy. Pertinent physical findings Body mass index is 29.7. Weight is 211 pounds. Technical description The [employer] Apnea[employer] system was used to complete his home sleep study. This is a type III home sleep study evaluation. The total recording duration was 6 hours and 45 minutes. The study started at 10:49 PM and ended at 5:34 AM. There was a total of 6025 minutes of flow monitoring in 6034 minutes of oxygen saturation monitoring Results Respiratory analysis showed a total of 92 obstructive apneas and 72 obstructive hypopneas. The resulting AHI was 25.5, worse in the supine body position and the patient's AHI was being supine was 39.5. Oxygenation analysis The baseline pulse ox while awake was 96%. Average pulse ox during sleep was 93%. The patient spent approximately 18 minutes of the sleep time below pulse ox of 89%. The patient had the lowest pulse ox of 80% during sleep Cardiac summary Average heart rate was 62 with a minimum heart rate of 50 and the maximal heart rate of 93 Assessment Symptomatic obstructive sleep apnea, moderately severe with an AHI of 25.5, worsening supine body position with an AHI of 39.5 while being supine. Chronic loud snoring. The patient has Mallampati class II with bilateral tonsillar enlargement. No overbite. No significant daytime hypersomnia or sleepiness. Siletz score is at 9. Headaches, including morning headaches, under investigation. Hypertension Osteoarthritis COPD the patient is a former smoker. Plan My overall clinical suspicion for obstructive sleep apnea on this patient was low. However, contrary to my expectation, the patient has significant positional obstructive sleep apnea. Disease severity is moderate at baseline and severe in his supine body position. No significant sleep fragmentation with chronic hypersomnia or sleepiness. Patient has snoring with bilateral tonsillar enlargement and Mallampati class II and is experiencing morning headaches. Maintain regular sleep schedule and the patient already has good sleep hygiene measures. Avoid alcohol drinking at least 3 hours prior to going to bed as the patient drinks beer specially on weekends. Rest of the comorbidities are all inactive and stable. No cardiovascular complications or comorbidities. Will recommend CPAP therapy for the patient. Will proceed with CPAP titration if he is willing to undertake CPAP therapy in the future. I think is worthwhile treating this patient especially with moderate to severe nature of his MARCE. When asked the patient to sleep on his side as the patient's disease is positional.
== END ==
LOC: 3 N SLEEP 11:03
PROVIDERS: ATTEND Internal Medicine Critical Care Medicine
DX: G47.33 Obstructive sleep apnea (adult) (pediatric) (principal); I10 Essential (primary) hypertension; J35.1 Hypertrophy of tonsils; J44.9 Chronic obstructive pulmonary disease, unspecified; M19.90 Unspecified osteoarthritis, unspecified site; R51.9 Headache, unspecified; Z87.891 Personal history of nicotine dependence

== ENCOUNTER → 2024-09-03 | Outpatient (CLI) | payer MEDICAID ==
[2024-09-03 09:08] VITALS: BP 153/101; PULSE 73; RESP 16
--- NOTE | 2024-09-03 13:14 | P.PAINPG ---
Objective - Vital Signs Vital signs: Vital Signs Temp Pulse 73 09/03/24 09:01 Resp 16 09/03/24 09:01 BP 153/101 09/03/24 09:01 Pulse Ox 97 09/03/24 09:01 FiO2 Intake & Output 09/02/24 09/03/24 09/03/24 18:59 06:59 18:59 Weight 92.986 kg PQRS Measure Charge Sheet Mode of Arrival: Ambulatory Comment: HISTORY OF PRESENT ILLNESS: A 58 yr old malepresents today w severe and chronic LBP x 2 yrs secondary to radiculopathy, spondylosis and facet arthropathy without myelopathy for evaluation. Pt states pain level is provoked at 9 /10 in intensity, constant, localized in the lower lumbar spine, predominantly axial, achy in character without shooting pain . Pain is provoked by bending. Pain is alleviated by PT x 6 wks which ended in 2023, physician guided exercises every other day since 2023, heat, ice, medications, repositioning and rest. Oswestry axial pain score at 29. Interventional procedures include BL Hip Replacement, L Shoulder ARthroscopy, BL Knee Arthroscopy Medications include Celebrex, Ibu, CBD Oil, Cannabis REVIEW OF ORGAN SYSTEMS: CONSTITUTIONAL: No fevers or chills. No recent weight loss. NEUROLOGICAL: + numbness and tingling along the distal extremities. No seizure disorders or headaches. MUSCULOSKELETAL: + pain PSYCHIATRIC: Denies current depression or suicidal thoughts. Physical Examinations : Constitutional : Cooperative , not in acute distress . Neurologic : Cranial nerve II to XII intact. No focal neurological deficits. Psychiatric : alert & oriented x 3. Matching mood & appropriate affect. Judgment & insight intact. Musculoskeletal : Cervical Spine Motor strength in the deltoid and biceps: Normal right side. Normal Left side Motor strength biceps and the wrist extensors: Normal right side . Normal left side Motor strength in the triceps muscle: Normal right side. Normal left side Deep tendon reflexes: Normal at the biceps. Normal at Brachioradialis. Normal at triceps Vertebral body tenderness to deep palpation over Cervical facet loading test: positive bilaterally Spurling test: positive bilaterally Neck distraction test: positive bilaterally Joe sign: positive bilaterally Lumbar spine Motor strength lower extremities ,thigh and legs 5/5 Right side , 5/5 Left side Deep tendon reflexes : Normal Knee Jerk. Normal Ankle Jerk Vertebral body tenderness over Kohli Test positive Lumbar facet Loading Test: positive Right / positive Left L4-L5, L5-S1 Range of motion of the lumbar spine Flexion 30 degrees, extension 10 degrees Straight Leg Raise test: Left/ Right positive at degree Joanna test: positive right / positive left. Severe tenderness over the Sacroiliac joint on the Right / Left sides Gaenslen test: positive bilaterally Seated flexion test: positive bilateral ly. Sacral spine : Severe tenderness over the Sacroiliac joint: right side / left side Range of motion: Flexion of the lumbar spine <60 degrees Range of motion: Extension of the lumbar spine <20 degrees Gaenslen's Test positive Joanna test: positive right side / left side Thigh Thrust Test Sacral Thrust Test Imaging: MRI noncontrast of the lumbar spine from 02/18/2023 reviewed Assessment/ Plan : Lumbar DDD Recommendation of FRAN MBKj L4-L5, L5-S1 #2. Risks, benefits of procedure discussed and patient verbalized understanding. Admits to anti- coagulant use or medical history of diabetes. Protocol for discontinuation/ continuation of medications levy procedure discussed. Minimal anesthesia provided, if clinically indicated, consisting of Versed and Fentanyl. All questions answered. I have spent greater than 30 minutes on patient care today. Dr Lara was available by phone for the evaluation of this patient. The time was used to review the medical records including relevant urine studies and Prescription history (MAPs), review of the available imaging, evaluation and examination of the patient, coordination of care with the medical staff and if applicable referring physicians, as well as creation of the medical record - Pain Location Right Lower Back Non-Pharmacological Interventions: Chiropractic Treatment, Physical Therapy, Stretching Pharmacological Interventions: Block, Medication PQRS Narrative: Smoking Status Former smoker Blood Pressure 153/101 Pain Intensity [Right Lower 10 Back] Scale Used Numeric (1 - 10) Hx Alcohol Use (MH) Yes Home Medications: Ambulatory Orders Cetirizine HCl [Zyrtec] 10 mg PO DAILY #60 tab 11/12/14 Omeprazole 20 mg PO DAILY 05/08/20 Montelukast [Singulair] 10 mg PO DAILY #90 tab 02/18/22 hydroCHLOROthiazide 12.5 mg PO DAILY 06/05/24 Controlled Substance Measures - Controlled Substance Measures Is patient prescribed a controlled substance at discharge?: No
== END ==
LOC: PNWHC3 08:57
PROVIDERS: ATTEND Specialist
DX: M51.360 Other intervertebral disc degeneration, lumbar region with discogenic back pain only (principal); M47.26 Other spondylosis with radiculopathy, lumbar region; Z87.891 Personal history of nicotine dependence
CPT/HCPCS: 99211